=== PATIENT | male | born 1955 | race Caucasian/White ===

== ENCOUNTER 2016-07-20 06:38 | Inpatient (IN) | payer OTHER ==
[2016-07-07 09:06] VITALS: BMI 35.0
--- NOTE | 2016-07-07 09:55 | PAT Medication Instructions ---
Service Date Jul 07, 2016. Current Home Medication List Carvedilol (Coreg), 1 TAB PO BID Cholecalciferol (Vitamin D3), 1 TAB PO QAM Digoxin (Digoxin), 0.125 MG PO NOON Fluticasone Furoate-Vilanterol (Breo Ellipta), 1 DOSE INH QAM Furosemide (Lasix), 20 MG PO PRN Glyburide (Micronase), 2.5 MG PO QAM Ibuprofen (Advil), 400 MG PO BID PRN for RN Losartan Potassium (Cozaar), 25 MG PO QAM Metformin Hcl (Glucophage), 850 MG PO BID Multivitamin (Multivitamin), 0.5 TAB PO BID Rivaroxaban (Xarelto), 20 MG PO QPM Medication Instructions For Your Scheduled Surgery - Check with surgeon/heel seat trimmer for instructions (if okay with heel seat trimmer, needs to be off Xarelto for 72 hours prior to surgery for spinal block placement ) Rivaroxaban (Xarelto), 20 MG PO QPM - Check with surgeon for instructions: Ibuprofen (Advil), 400 MG PO BID PRN for RN - Continue as usual: Digoxin (Digoxin), 0.125 MG PO NOON - Hold the following medications 48 hours prior to surgery: Metformin Hcl (Glucophage), 850 MG PO BID - Hold the following medications the morning of surgery: Multivitamin (Multivitamin), 0.5 TAB PO BID Losartan Potassium (Cozaar), 25 MG PO QAM Glyburide (Micronase), 2.5 MG PO QAM Furosemide (Lasix), 20 MG PO PRN Cholecalciferol (Vitamin D3), 1 TAB PO QAM - Take the following medications the morning of surgery with a sip of water: Fluticasone Furoate-Vilanterol (Breo Ellipta), 1 DOSE INH QAM Carvedilol (Coreg), 1 TAB PO BID - Take the following medications as scheduled the night before surgery: Furosemide (Lasix), 20 MG PO PRN Carvedilol (Coreg), 1 TAB PO BID If you have any questions please call us at [phone] (Radha Marrufo PA-C) or [phone] or [phone]
[2016-07-07 10:33] LABS: BASO % 0.4 %; BASO ABS # 0.03 K/uL (0-0.2); COMPLETE YES; EOS % 2.2 %; IG% 0.5 %; LYMPH % 24.8 %; LYMPH ABS # 1.99 K/uL (1.2-3.4); MEAN CELL VOLUME 88.8 fL (80-100); MEAN CORPUSCULAR HEMOGLOBIN 30.4 pg (25-34); MEAN CORPUSCULAR HGB CONC 34.2 g/dl (32-36); MEAN PLATELET VOLUME 11.1 fL (7.4-10.4); MONO % 8.8 %; NEUT % 63.3 %; PLATELET COUNT 185 K/uL (130-400); RED BLOOD COUNT 5.07 M/uL (4.7-6.1); WHITE BLOOD COUNT 8.04 K/uL (4.8-10.8)
[2016-07-07 10:41] LABS: MANUAL MICROSCOPIC REQUIRED? NO; REVIEW REQ? NO; URINE APPEARANCE CLEAR (CLEAR); URINE BILIRUBIN NEG (NEG); URINE COLOR YELLOW; URINE NITRITE NEG (NEG); URINE PH 5.5 (4.5-7.5); URINE SPECIFIC GRAVITY 1.018 (1.000-1.030); UROBILINOGEN NEG (NEG)
[2016-07-07 10:42] LABS: INR 1.1 (0.9-1.1); PARTIAL THROMBOPLASTIN RATIO 1.1; PROTHROMBIN TIME (PATIENT) 11.9 SECONDS (9.0-12.0)
[2016-07-07 11:04] LABS: CREATININE 1.1 mg/dl (0.60-1.40)
[2016-07-07 11:12] LABS: ESTIMATED AVERAGE GLUCOSE 206 mg/dl; HA1C FLAG Normal (Normal)
--- NOTE | 2016-07-19 09:06 | HISTORY & PHYSICAL EXAMINATION ---
DATE OF ADMISSION: 07/20/2016 CHIEF COMPLAINT: Left knee pain. HISTORY OF PRESENT ILLNESS: The patient is a 60-year-old gentleman with known osteoarthritis about his left knee. He has had previous corticosteroid injection with short-term relief. He takes [id number] anti-inflammatory medications intermittently for pain as needed. He continues to have ongoing pain and disability with activities of daily living and now desires to proceed with left total knee arthroplasty. PAST MEDICAL HISTORY: Hypertension, type 2 diabetes, atrial fibrillation, hyperlipidemia, obesity. PAST SURGICAL HISTORY: Right knee arthroscopy. MEDICATIONS: Include glyburide 2.5 mg daily with breakfast, Breo Ellipta 100/25 mcg 1 inhalation once daily, Lasix 20 mg daily, ProAir 108 mcg 2 puffs q. 8 hours p.r.n. wheezing, Cozaar 25 mg daily, digoxin 125 mcg daily, Xarelto 20 mg daily, Coreg 3.125 mg twice daily, multivitamin daily, metformin hydrochloride 850 mg twice daily, vitamin D3 400 International Units daily. ALLERGIES: SESAME SEED AND OIL. SOCIAL HISTORY AND REVIEW OF SYSTEMS: Noncontributory. PHYSICAL EXAMINATION: GENERAL: Well-nourished, well-developed, obese male who appears stated age. HEENT: Normocephalic, atraumatic, extraocular movements intact, oropharynx pink and moist. NECK: Supple without adenopathy. LUNGS: Clear to auscultation bilaterally. HEART: Regular rate and rhythm. ABDOMEN: Soft, nontender, nondistended, obese. EXTREMITIES: The upper extremities are within normal limits. The left knee has a slight varus alignment. He complains primarily of medial compartment pain. His range of motion is approximately -5 to 120 degrees. There is mild crepitus with range of motion. X-RAYS: X-rays were reviewed. He has a varus aligned knee. He has [id number] arthritis of the medial compartment with medial osteophyte formation. There is mild degenerative change about the patellofemoral joint. ASSESSMENT: Left knee degenerative joint disease. PLAN: Risks versus benefits were discussed, consent was obtained. The patient's primary care physician is Dr. Primo Almean. His cream cheese maker is Dr. Nito Ramirez. We will proceed with left total knee arthroplasty upon preop workup and medical clearance.
[2016-07-20] VITALS (8 sets, daily range): BP systolic 102–125; BP diastolic 67–81; PULSE 82–98; TEMP 36.5–37.4; O2SAT 94–97; Ht 185.4 cm; Wt 122.7 kg
[~2016-07-20] VITALS: Ht 185.4 cm; Wt 122.7 kg
[~2016-07-20 06:38] MED LIST: ACETAMINOPHEN 500 MG TAB PO SCH; BUPIVACAINE 0.25% 30 ML VIAL ONE; BUPIVACAINE 0.5 % 5 MG/1 ML PF 10ML VIAL ONE; CARV3.12 PO; CEFAZOLIN 3000 MG/65 ML D5W 65 ML IV SCH; CHOL20007 PO; CeleBREX 200 MG CAP PO SCH; DEXAMETHASONE 4 MG TAB PO SCH; FAMOTIDINE 20 MG TAB PO SCH; FLUT1INH INH; FURO-85 PO; GABAPENTIN 300 MG CAP PO SCH; GLYB5TAB8 PO; IBUP-1050 PO; LACTATED RINGER'S 1000ML 1,000 ML IV SCH; LACTATED RINGER'S 1000ML 500 ML IV ONE; LACTATED RINGER'S 1000ML IV SCH; LNX125 PO; LOSA1TAB PO; METF-383 PO; METOCLOPRAMIDE HCL 10 MG TAB PO SCH; MULT-506 PO; RIVA1TAB4 PO; ROPIVACAINE 5MG/ML 30 ML 150 MG, BUPIVACAINE/EPINEPHR 0.5% MPF 30 ML, KETOROLAC TROMETH... INFIL SCH
[2016-07-20] MEDS ORDERED: FENTANYL CITRATE INJ 50 MCG/1 ML 2 ML VIAL ONE (07:31)
[2016-07-20] MEDS ORDERED: MIDAZOLAM HCL 1 MG/ML 2ML VIAL ONE (07:31)
[2016-07-20] MEDS ORDERED: ATROPINE SULFATE 0.1 MG/ML 5ML SYR IV PRN (07:45)
[2016-07-20] MEDS ORDERED: FENTANYL CITRATE INJ 50 MCG/1 ML 2 ML VIAL IV PRN (07:45)
[2016-07-20] MEDS ORDERED: ONDANSETRON INJ 2 MG/ML 2 ML VIAL IV PRN ×2 (07:45→10:45)
[2016-07-20] MEDS ORDERED: EpHEDrine SULFATE INJ 50 MG/ML AMP IV PRN (07:45)
--- NOTE | 2016-07-20 08:12 | History & Physical Bridge Note ---
H&P Re-Evaluation Bridge Note: I have examined the patient, reviewed the History & Physical and in the interval since the performance of the History & Physical I have noted the following changes of clinical significance: No changes noted
[2016-07-20] MEDS ORDERED: BACITRACIN 50000 UNIT VIAL ONE (08:29)
[2016-07-20] MEDS ORDERED: ORTHO JOINT ANESTHETIC ONE (08:29)
[2016-07-20] MEDS ORDERED: POVIDONE-IODINE OP SOLN 30 ML BTL ONE (08:29)
[2016-07-20] MEDS: TRANEXAMIC ACID INJ 1,000 MG in SODIUM CHLORIDE 0.9% 100ML 100 ML IV SCH ×2 (08:49→12:32)
[2016-07-20] MEDS ORDERED: LIDOCAINE HCL 2% 2 ML VIAL (20MG/ML) ONE (09:24)
[2016-07-20] MEDS ORDERED: PROPOFOL IV EMULSION 10 MG/ML 20 ML VIAL IV ONE ×2 (09:24→09:47)
[2016-07-20] MEDS ORDERED: PHENYLEPHRINE 100MCG/ML 5ML SYR ONE (09:24)
[2016-07-20] MEDS ORDERED: TAMSULOSIN HCL 0.4 MG CAP PO PRN (10:45)
[2016-07-20] MEDS ORDERED: ZOLPIDEM TARTRATE 5 MG TAB PO PRN (10:45)
[2016-07-20] MEDS ORDERED: MAGNESIUM HYDROXIDE SUSP 30 ML UDC PO PRN (10:45)
[2016-07-20] MEDS ORDERED: METOCLOPRAMIDE HCL INJ 5 MG/ML 2 ML VIAL IV PRN (10:45)
[2016-07-20] MEDS ORDERED: ALUMINUM/MAGNESIUM/SIMETH (MAALOX MAX) 30 ML UDC PO PRN (10:45)
[2016-07-20] MEDS ORDERED: MoRPHine SULFATE 2 MG/ML CARP IV PRN (10:45)
--- NOTE | 2016-07-20 11:24 | DIAGNOSTIC IMAGING REPORT ---
LEFT KNEE 1 OR 2 VIEWS ROUTINE CLINICAL HISTORY: AP/LATERAL IN PACU LEFT KNEE knee replacement COMPARISON: None. DISCUSSION: Anatomic alignment status post total left knee replacement. Good contact between prosthetic and underlying bone. Surgical drains are in position expected soft tissue postoperative change IMPRESSION: Anatomic alignment status post total left knee replacement Electronically signed by: Nelson Herrera M.D. 07/20/2016 11:23 AM Dictated Date/Time: 07/20/2016 11:22 AM
--- NOTE | 2016-07-20 11:40 | Anesthesiology Progress Note ---
Anesthesia Post Op Note Date & Time Jul 20, 2016 at 11:39 Vital Signs Pain Intensity: 0 Vital Signs Past 12 Hours Date Time Temp Pulse Resp B/P Pulse Ox O2 Delivery O2 Flow Rate FiO2 07/20/16 11:35 91 16 106/71 94 Nasal Cannula 4 07/20/16 11:25 80 16 103/67 93 Nasal Cannula 4 07/20/16 11:15 80 16 106/67 99 Nasal Cannula 4 07/20/16 11:05 83 16 90/61 99 Mask 10 07/20/16 10:55 84 16 109/71 99 Mask 10 07/20/16 10:47 36.6 86 16 105/72 94 Mask 10 07/20/16 07:01 36.5 98 20 125/81 94 Room Air Notes Mental Status: alert / awake / arousable, participated in evaluation Pt Amnestic to Procedure: Yes Nausea / Vomiting: adequately controlled Pain: adequately controlled Airway Patency, RR, SpO2: stable & adequate BP & HR: stable & adequate Hydration State: stable & adequate Neuraxial Anesthesia: was administered, sensory block is resolving Anesthetic Complications: no major complications apparent Will ensure patient on continuous pulse oximetry on floor and before surgery he knew to use CPAP today (he brought it from home).
[2016-07-20] MEDS ORDERED: GLUCOSE 40% GEL 15 GM TUBE PO PRN (13:00)
[2016-07-20] MEDS ORDERED: GLUCOSE 10 TABS/TUBE PO PRN (13:00)
[2016-07-20] MEDS ORDERED: GLUCAGON FOR INJ 1 MG VIAL SQ PRN (13:00)
[2016-07-20] MEDS ORDERED: DEXTROSE 50% 50 ML SYR IV PRN (13:00)
[2016-07-20] MEDS: SODIUM CHLORIDE 0.9% 1000ML 1,000 ML IV SCH ×2 (13:32→22:22)
[2016-07-20] MEDS ORDERED: MoRPHine SULFATE 10 MG/ML CARP/VIAL IV PRN (13:45)
[2016-07-20] MEDS ORDERED: MoRPHine SULFATE 4 MG/ML 1 ML CARP\\VIAL IV PRN (13:45)
--- NOTE | 2016-07-20 13:49 | OPERATIVE REPORT ---
DATE OF OPERATION: 07/20/2016 PREOPERATIVE DIAGNOSIS: Osteoarthritis, left knee. POSTOPERATIVE DIAGNOSIS: Osteoarthritis, left knee. PROCEDURE: Left total knee arthroplasty. SURGEON: Dr. Rainey. SPRINKLER DRIVER: Arnaldo Andres PA-C ANESTHESIA: Spinal. COMPLICATIONS: None. CONDITION: Recovery room stable. OPERATION AND FINDINGS: Following induction of spinal anesthesia, the patient's left leg was prepped and draped in the usual sterile manner. Limb was exsanguinated with an Esmarch bandage and tourniquet was inflated to 350 mmHg. A longitudinal incision was made anteriorly. Subcutaneous tissue was sharply dissected. Electrocautery was used for hemostasis. Prepatellar bursa was incised and median parapatellar incision was performed. Patella was everted and the knee was flexed. Fat pad was removed to aid in visualization and the anterior and posterior cruciate ligaments were removed. The medial face of the tibia was cleared of soft tissue first with a Bovie and a Tuttle elevator. This tissue was retracted posteriorly using a blunt Hohmann. A Suarez retractor was used to expose the synovium above on the anterior aspect of the femur and this was removed down to bone. The PSI guide was placed on the distal femur and two pins were placed anteriorly and kept in position and two additional pins were placed distally and removed. The distal femoral cutting block was placed in position and the distal femoral cut was used in the +0 setting. Next, the cutting block was removed and the spinal block was placed in the distal end of the femur. Care was taken to ensure appropriate external rotation and feeler gauge was used to ensure no notching would occur. The femoral block was centered on the distal femur and in the medial and lateral direction and was fixed using two bone screws. The gold pins were then removed. The oscillating saw was used to create the bone cuts and the distal femoral cutting block was removed and the reciprocating saw was used to further trim the femoral cuts as well as a deep in the area for the trochlear groove. Next, posterior condyle remnants were removed. Following this, a meniscal clamp and knife were utilized to remove the anterior portion of both medial and lateral meniscus. The proximal tibia PSI guide was placed into position and the proximal tibial cutting guide was screwed into position. The extra medullary alignment guide was utilized to ensure appropriate alignment. The proximal tibia was cut and the proximal tibial cutting block was removed and this bone fragment was removed. The appropriate guide was used to perform the notch cut on the distal femur and a lamina sloop captain and a cochlear knife were utilized to finish both medial and lateral meniscectomies to remove any remnants of the posterior or anterior cruciate ligaments. Following this, the distal femoral component was impacted into position and blunt Ceci was used to sublux the tibia anteriorly. The proximal tibia was sized and a 5 tibial tray was chosen as the size to be used. This was put into position and appropriate external rotation and a double check with extramedullary alignment guide was performed. The canal for the tibial stem was prepared first with a 17 mm drill and then the punch and a mallet and the trial tibial poly was placed. A 5 was chosen the size to be used. It was brought to extension and the patella was prepared with the patellar reamer. A 36 component was chosen the size to be used. The trial component was placed and knee was taken through a full range of motion and there was found to be no lateral subluxation of the tibia. No lateral release was required. The trials were all removed. The final components were obtained and assembled. Cement was mixed. The knee was thoroughly irrigated and the ortho mix was injected about the knee joint. The final components were cemented into position. After thoroughly suctioning and drying the bone ends, all excess cement was removed. The knee was held in extension while the cement hardened. The wound was irrigated and closed over a Hemovac drain. #1 Vicryl was used to close the extensor mechanism. Subcutaneous tissues closed using 0 Dexon. Skin was closed with marcello. Sterile dressing of Adaptic, 4 x 4's, sterile Webril, and Patrick was applied. The patient tolerated the procedure well. Due to the complex nature of the procedure, the entire surgery was performed with the operational assistance of Arnaldo Andres PA-C. The technical support assistant, under direct supervision, was involved in the actual performance of all aspects of the surgical procedure including hemostasis, tissue retraction and incision, instrument management, patient positioning, and wound closure. I attest to the content of the Intraoperative Record and any orders documented therein. Any exceptions are noted below. WENCESLAO
[2016-07-20] MEDS: FERROUS GLUCONATE 324 MG TAB PO SCH ×2 (14:10→17:08)
[2016-07-20] MEDS: INSULIN ASPART 100 UNITS/ML 3 ML PEN SC SCH ×3 (14:12→21:36)
--- NOTE | 2016-07-20 14:43 | Medical Consult ---
Consultation Date of Consultation: Jul 20, 2016. Attending Physician: Caleb Rainey M.D. Reason for Consultation: Medical Consultation History of Present Illness Mr. York is a 60 y/o male with PMHx of Paroxysmal Atrial Fibrillation, T2DM, HTN, and HLD who is S/P L TKA. He is currently pain free as block still present but resolving. Neg flatus at this time. Reports that he takes oral anti- diabetic medications which his PCP just initiated Glyburide approx 3 weeks ago due to a high HbA1c. Last A1c is significant for 8.8. Besides his A Fib he denies further cardiovascular issues. Denies history of blood clots or bleeding disorders. Family Hx is significant for a mother with CAD with upcoming CABG. Family History Coronary Artery Disease MOTHER Social History Smoking Status: Never Smoker Smokeless Tobacco Use: No Alcohol Use: none Drug Use: none Marital Status: Housing Status: lives with family Allergies Coded Allergies: Sesame Seed (Verified Allergy, Severe, OIL AND SEEDS-ANAPHYLAXIS, 07/20/16) NO KNOWN DRUG ALLERGIES (Verified Allergy, Unknown, NONE, 07/20/16) Current Inpatient Medications Current Inpatient Medications Medications (Trade) Dose Ordered Sig/Wing Route Start Time Stop Time Status Last Admin Dose Admin Cefazolin Sodium (Ancef 3000 Mg/ 65 ml D5W) 65 ml @ 100 mls/hr PREOP IV 07/20/16 06:00 07/20/16 18:00 07/20/16 09:06 100 MLS/HR Acetaminophen (Tylenol Tab) 1,000 mg PREOP PO 07/20/16 06:00 07/20/16 18:00 07/20/16 07:30 1,000 MG Celecoxib (CeleBREX CAP) 200 mg PREOP PO 07/20/16 06:00 07/20/16 18:00 07/20/16 07:30 200 MG Dexamethasone (Decadron Tab) 8 mg PREOP PO 07/20/16 06:00 07/20/16 18:00 07/20/16 07:32 8 MG Famotidine (Pepcid Tab) 20 mg PREOP PO 07/20/16 06:00 07/20/16 18:00 07/20/16 07:30 20 MG Gabapentin (Neurontin Cap) 600 mg PREOP PO 07/20/16 06:00 07/20/16 18:00 07/20/16 07:31 600 MG Metoclopramide HCl 10 mg 10 mg PREOP PO 07/20/16 06:00 07/20/16 18:00 07/20/16 07:31 10 MG Tranexamic Acid 1000 mg/Sodium Chloride 110 ml @ 660 mls/hr TODAY@06,0630 IV 07/20/16 06:00 07/20/16 18:00 07/20/16 08:49 660 MLS/HR Sodium Chloride 1,000 ml @ 100 mls/hr Q10H IV 07/20/16 13:30 07/21/16 13:29 07/20/16 13:32 100 MLS/HR Cefazolin Sodium/ Dextrose (Ancef Iv/D5 50ml) 60 ml @ 100 mls/hr Q8H IV 07/20/16 17:00 07/21/16 01:35 Ketorolac Tromethamine (Toradol Inj) 30 mg Q6H IV. 07/20/16 16:00 07/21/16 15:59 Oxycodone HCl (Roxicodone Immediate Rel Tab) 1 TABLET FOR PAIN RATING... Q4H PRN PO 07/20/16 10:45 08/03/16 10:44 Oxycodone HCl (Oxycontin Tab) 10 mg Q12 PO 07/20/16 21:00 08/03/16 20:59 Morphine Sulfate (MoRPHine SULFATE INJ) 2 mg Q2HWA PRN IV 07/20/16 10:45 08/03/16 10:44 Acetaminophen (Tylenol Tab) 1,000 mg Q8 PO 07/21/16 15:00 08/20/16 14:59 Magnesium Hydroxide (Milk Of Magnesia Susp) 30 ml Q6H PRN PO 07/20/16 10:45 08/19/16 10:44 Docusate Sodium (coLACE CAP) 100 mg BID PO 07/20/16 21:00 08/19/16 20:59 Diphenhydramine HCl (Benadryl Cap) 25 mg Q8H PRN PO 07/20/16 10:45 08/19/16 10:44 Al Hydrox/Mg Hydrox/Simethicone (Maalox Max Susp) 15 ml Q4H PRN PO 07/20/16 10:45 08/19/16 10:44 Zolpidem Tartrate (Ambien Tab) 5 mg HSZ PRN PO 07/20/16 10:45 08/19/16 10:44 Multivitamins (Multivitamin Tab) 1 tab QAM PO 07/21/16 09:00 08/20/16 08:59 Ondansetron HCl (Zofran Inj) 4 mg Q6H PRN IV 07/20/16 10:45 08/19/16 10:44 Metoclopramide HCl (Reglan Inj) 10 mg Q6H PRN IV 07/20/16 10:45 08/19/16 10:44 Ferrous Gluconate (Ferrous Gluconate Tab) 324 mg TIDM PO 07/20/16 12:00 08/19/16 11:59 07/20/16 14:10 324 MG Pantoprazole Sodium (Protonix Tab) 40 mg QAM PO 07/21/16 09:00 08/20/16 08:59 Tamsulosin HCl 0.4 mg 0.4 mg QAM PRN PO 07/20/16 10:45 08/19/16 10:44 Dexamethasone Sodium Phosphate/ Syringe (Decadron Inj/ Syringe) 2.5 ml @ 1 mls/min TODAY@0730 IV 07/21/16 07:30 07/21/16 07:33 Carvedilol (Coreg Tab) 3.125 mg BID PO 07/20/16 21:00 08/19/16 20:59 Digoxin (Lanoxin Tab) 0.125 mg DAILY@1600 PO 07/20/16 16:00 08/19/16 15:59 Miscellaneous Information (Order Awaiting Action) 1 ea QS N/A 07/20/16 16:00 08/19/16 15:59 Glyburide (MICRONase TAB) 2.5 mg QAM PO 07/21/16 09:00 08/20/16 08:59 Losartan Potassium (coZAAR TAB) 25 mg QAM PO 07/21/16 09:00 08/20/16 08:59 Rivaroxaban (Xarelto Tab) 20 mg QAM PO 07/21/16 09:00 08/20/16 08:59 Cholecalciferol (Vitamin D Tab) 2,000 inter.unit QAM PO 07/21/16 09:00 08/20/16 08:59 Miscellaneous Information (Order Awaiting Action) 1 ea QS N/A 07/20/16 16:00 08/19/16 15:59 Insulin Aspart (novoLOG ASPART) SLIDING SCALE If C... ACHS SC 07/20/16 17:15 08/19/16 17:14 07/20/16 14:12 2 UNITS Glucose (Glucose 40% Gel) 15-30 GRAMS 15 GRAMS... UD PRN PO 07/20/16 13:00 08/19/16 12:59 Glucose (Glucose Chew Tab) 4-8 Tablets 4 Tabl... UD PRN PO 07/20/16 13:00 08/19/16 12:59 Dextrose (Dextrose 50% 50ML Syringe) 25-50ML OF 50% DW IV FOR... UD PRN IV 07/20/16 13:00 08/19/16 12:59 Glucagon (Glucagon Inj) 1 mg UD PRN SQ 07/20/16 13:00 08/19/16 12:59 Morphine Sulfate (MoRPHine SULFATE INJ) 4 mg Q2H PRN IV 07/20/16 13:45 08/03/16 13:44 Morphine Sulfate (MoRPHine SULFATE INJ) 6 mg Q2H PRN IV 07/20/16 13:45 08/03/16 13:44 Review of Systems Constitutional: No chills, No fever Eyes: No worsening of vision ENT: No nasal symptoms, No sore throat, No trouble swallowing Respiratory: No cough, No shortness of breath Cardiovascular: No chest pain Abdomen: No nausea, No pain, No vomiting Musculoskeletal: No calf pain, No joint pain, No muscle pain, No swelling Genitourinary - Male: No dysuria Neurologic: + problem reported (numbness and limited movement 2/2 nerve block) Hematologic / Lymphatic: No abnormal bleeding/bruising, No clotting problems Integumentary: No rash Physical Exam Date Time Temp Pulse Resp B/P Pulse Ox O2 Delivery O2 Flow Rate FiO2 07/20/16 13:00 37.4 94 18 111/75 96 Nasal Cannula 4.0 07/20/16 12:30 36.8 92 16 106/71 94 Nasal Cannula 4.0 07/20/16 12:00 37.0 83 16 108/75 95 Nasal Cannula 4.0 07/20/16 12:00 Nasal Cannula 4.0 07/20/16 12:00 Nasal Cannula 4.0 07/20/16 11:35 91 16 106/71 94 Nasal Cannula 4 07/20/16 11:25 80 16 103/67 93 Nasal Cannula 4 07/20/16 11:15 80 16 106/67 99 Nasal Cannula 4 07/20/16 11:05 83 16 90/61 99 Mask 10 07/20/16 10:55 84 16 109/71 99 Mask 10 07/20/16 10:47 36.6 86 16 105/72 94 Mask 10 07/20/16 07:01 36.5 98 20 125/81 94 Room Air General Appearance: WD/WN, no apparent distress Head: normocephalic, atraumatic Eyes: sclerae normal ENT: hearing grossly normal Neck: supple, no adenopathy, no JVD, trachea midline Respiratory/Chest: lungs clear, normal breath sounds, no respiratory distress, no accessory muscle use Cardiovascular: regular rate, rhythm, no gallop, no murmur Abdomen/GI: normal bowel sounds, non tender, soft Extremities/Musculoskelatal: no calf tenderness, no pedal edema, + pertinent finding (LLE with LATOSHA bandage that is clean/dry/intact; drain present; immediate cap refill; extremity warm; limited movement 2/2 nerve block) Neurologic/Psych: alert, oriented x 3 Skin: normal color, warm/dry Laboratory Results Last 24 Hours Test 07/20/16 07:08 07/20/16 10:50 07/20/16 13:07 Bedside Glucose 164 mg/dl 173 mg/dl 211 mg/dl Assessment & Plan Mr. York is a 60 y/o male with PMHx of Paroxysmal Atrial Fibrillation, T2DM, HTN, and HLD who is S/P L TKA. S/P L TKA: - Pain management, IVF, PT/OT, DVT Prophylaxis per primary Paroxysmal Atrial Fibrillation: NSR Currently - Coreg 3.125 mg BID - Digoxin 0.125 mg daily - Xarelto 20 mg daily T2DM: A1c 8.8 - Recent addition of Glyburide approx 3 weeks ago - Hold Metformin - Continue Glyburide 2.5 mg daily - SSI - goal 100-150; correction factor 35 HTN: - Cozaar 25 mg daily - Lasix 20 mg PRN Disposition: - Recent addition of anti-diabetic medications - recommend repeat A1c in approx 3 months to monitor long-term effectiveness
[2016-07-20] MEDS: KETOROLAC TROMETHAMINE 30 MG/ML VIAL IV. SCH ×2 (15:36→21:38)
[2016-07-20] MEDS: DIGOXIN 0.125 MG TAB PO SCH (15:38)
[2016-07-20] MEDS: CEFAZOLIN IV 2,000 MG in DEXTROSE 5% 50ML 50 ML IV SCH (17:04)
[2016-07-20] MEDS: OXYCODONE HCL 10 MG TABCR (OXYCONTIN) PO SCH (21:37)
[2016-07-20] MEDS: DOCUSATE SODIUM 100 MG CAP PO SCH (21:37)
[2016-07-20] MEDS: CARVEDILOL 3.125 MG TAB PO SCH (21:41)
[2016-07-21] VITALS (8 sets, daily range): BP systolic 92–120; BP diastolic 59–75; PULSE 76–87; TEMP 36.3–37.2; O2SAT 91–96
[2016-07-21] MEDS: CEFAZOLIN IV 2,000 MG in DEXTROSE 5% 50ML 50 ML IV SCH (00:27)
[2016-07-21] MEDS: KETOROLAC TROMETHAMINE 30 MG/ML VIAL IV. SCH ×2 (03:37→10:12)
[2016-07-21 05:42] LABS: HEMATOCRIT 39.6 % (42-52); MEAN CELL VOLUME 88.6 fL (80-100); MEAN CORPUSCULAR HGB CONC 33.8 g/dl (32-36); MEAN PLATELET VOLUME 11.2 fL (7.4-10.4); PLATELET COUNT 155 K/uL (130-400); RED BLOOD COUNT 4.47 M/uL (4.7-6.1); WHITE BLOOD COUNT 14.24 K/uL (4.8-10.8)
[2016-07-21 06:16] LABS: BUN/CREATININE RATIO 22.9 (10-20); CALCIUM 7.9 mg/dl (8.5-10.1); CREATININE 1.1 mg/dl (0.60-1.40); POTASSIUM 4.1 mmol/L (3.5-5.1)
[2016-07-21] MEDS ORDERED: DEXAMETHASONE INJ 10 MG in SYRINGE 0 ML IV SCH (07:30)
--- NOTE | 2016-07-21 07:56 | Orthopedic Progress Note ---
Orthopedic Progress Note Date of Service Jul 21, 2016. Subjective Post OP Day: 1 Reports: feeling well Objective N/V intact, dressing C/D/I (Hemovac in place), toes mobile Date Time Temp Pulse Resp B/P Pulse Ox O2 Delivery O2 Flow Rate FiO2 07/21/16 07:35 Room Air 07/21/16 03:43 36.4 77 18 98/59 95 Room Air 07/21/16 00:25 CPAP 07/20/16 23:43 36.6 82 20 109/69 96 CPAP 07/20/16 20:34 36.8 94 16 102/67 97 Room Air 07/20/16 15:38 84 07/20/16 15:01 36.5 86 16 113/77 96 Nasal Cannula 4.0 07/20/16 14:00 36.5 89 17 111/74 94 Nasal Cannula 4.0 07/20/16 13:00 37.4 94 18 111/75 96 Nasal Cannula 4.0 07/20/16 12:30 36.8 92 16 106/71 94 Nasal Cannula 4.0 07/20/16 12:00 37.0 83 16 108/75 95 Nasal Cannula 4.0 07/20/16 12:00 Nasal Cannula 4.0 07/20/16 12:00 Nasal Cannula 4.0 07/20/16 11:35 91 16 106/71 94 Nasal Cannula 4 07/20/16 11:25 80 16 103/67 93 Nasal Cannula 4 07/20/16 11:15 80 16 106/67 99 Nasal Cannula 4 07/20/16 11:05 83 16 90/61 99 Mask 10 07/20/16 10:55 84 16 109/71 99 Mask 10 07/20/16 10:47 36.6 86 16 105/72 94 Mask 10 Laboratory Results 24 Hours: Test 07/21/16 05:00 Hematocrit 39.6 % Hemoglobin 13.4 g/dL Assessment & Plan Assessment: 60 yo male stable POD #1 left TKA Plan: 1. Med management 2. DVT prophylaxis- Xarelto, TEDs, SCDs 3. PT/OT 4. D/C planning- home w/ OPPT
[2016-07-21] MEDS: INSULIN ASPART 100 UNITS/ML 3 ML PEN SC SCH ×4 (08:39→21:08)
[2016-07-21] MEDS: FERROUS GLUCONATE 324 MG TAB PO SCH ×3 (08:51→18:35)
[2016-07-21] MEDS: FLUTICASONE FUROATE-VILANTEROL 30 PUFFS/INHALER INH INH SCH (08:52)
[2016-07-21] MEDS: DOCUSATE SODIUM 100 MG CAP PO SCH ×2 (08:54→21:04)
[2016-07-21] MEDS: CARVEDILOL 3.125 MG TAB PO SCH ×2 (08:55→21:04)
[2016-07-21] MEDS: LOSARTAN POTASSIUM 25 MG TAB PO SCH (08:56)
[2016-07-21] MEDS: MULTIVITAMIN TAB PO SCH (08:57)
[2016-07-21] MEDS: OXYCODONE HCL 10 MG TABCR (OXYCONTIN) PO SCH ×2 (08:57→21:04)
[2016-07-21] MEDS: PANTOprazole SOD 40 MG TAB PO SCH (08:58)
[2016-07-21] MEDS: CHOLECALCIFEROL 1000 INTER.UNIT TAB PO SCH (08:59)
[2016-07-21] MEDS ORDERED: RIVAROXABAN 20 MG TAB PO SCH ×2 (09:00→21:00)
[2016-07-21] MEDS ORDERED: NURSING VERBAL MED ORDER ONE (10:00)
[2016-07-21] MEDS: OXYCODONE HCL IR 5 MG TAB (IMMEDIATE RELEASE) PO PRN (10:11)
--- NOTE | 2016-07-21 11:03 | Progress Note ---
Subjective Date of Service: Jul 21, 2016. Subjective Pt evaluation today including: conversation w/ patient, conversation w/ family , physical exam, lab review, conversation w/ netsuite consultant, review of inpatient medication list Pain: left knee pain, controlled PO Intake: adequate Voiding: no voiding problems feeling well, pain controlled breathing well, no chest pain, no nausea no BM yet but + flatus planning on going home tomorrow with PT Review of Systems Musculoskeletal: + joint pain (left knee) All Other Systems: Reviewed and Negative Medications Current Inpatient Medications Medications (Trade) Dose Ordered Sig/Wing Route Start Time Stop Time Status Last Admin Dose Admin Ketorolac Tromethamine (Toradol Inj) 30 mg Q6H IV. 07/20/16 16:00 07/21/16 15:59 07/21/16 10:12 30 MG Oxycodone HCl (Roxicodone Immediate Rel Tab) 1 TABLET FOR PAIN RATING... Q4H PRN PO 07/20/16 10:45 08/03/16 10:44 07/21/16 10:11 5 MG Oxycodone HCl (Oxycontin Tab) 10 mg Q12 PO 07/20/16 21:00 08/03/16 20:59 07/21/16 08:57 10 MG Morphine Sulfate (MoRPHine SULFATE INJ) 2 mg Q2HWA PRN IV 07/20/16 10:45 08/03/16 10:44 Acetaminophen (Tylenol Tab) 1,000 mg Q8 PO 07/21/16 15:00 08/20/16 14:59 Magnesium Hydroxide (Milk Of Magnesia Susp) 30 ml Q6H PRN PO 07/20/16 10:45 08/19/16 10:44 Docusate Sodium (coLACE CAP) 100 mg BID PO 07/20/16 21:00 08/19/16 20:59 07/21/16 08:54 100 MG Diphenhydramine HCl (Benadryl Cap) 25 mg Q8H PRN PO 07/20/16 10:45 08/19/16 10:44 Al Hydrox/Mg Hydrox/Simethicone (Maalox Max Susp) 15 ml Q4H PRN PO 07/20/16 10:45 08/19/16 10:44 Zolpidem Tartrate (Ambien Tab) 5 mg HSZ PRN PO 07/20/16 10:45 08/19/16 10:44 Multivitamins (Multivitamin Tab) 1 tab QAM PO 07/21/16 09:00 08/20/16 08:59 07/21/16 08:57 1 TAB Ondansetron HCl (Zofran Inj) 4 mg Q6H PRN IV 07/20/16 10:45 08/19/16 10:44 Metoclopramide HCl (Reglan Inj) 10 mg Q6H PRN IV 07/20/16 10:45 08/19/16 10:44 Ferrous Gluconate (Ferrous Gluconate Tab) 324 mg TIDM PO 07/20/16 12:00 08/19/16 11:59 07/21/16 08:51 324 MG Pantoprazole Sodium (Protonix Tab) 40 mg QAM PO 07/21/16 09:00 08/20/16 08:59 07/21/16 08:58 40 MG Tamsulosin HCl (Flomax Cap) 0.4 mg QAM PRN PO 07/20/16 10:45 08/19/16 10:44 Carvedilol (Coreg Tab) 3.125 mg BID PO 07/20/16 21:00 08/19/16 20:59 07/21/16 08:55 3.125 MG Digoxin (Lanoxin Tab) 0.125 mg DAILY@1600 PO 07/20/16 16:00 08/19/16 15:59 07/20/16 15:38 0.125 MG Glyburide (MICRONase TAB) 2.5 mg QAM PO 07/21/16 09:00 08/20/16 08:59 07/21/16 08:56 2.5 MG Losartan Potassium (coZAAR TAB) 25 mg QAM PO 07/21/16 09:00 08/20/16 08:59 07/21/16 08:56 25 MG Cholecalciferol (Vitamin D Tab) 2,000 inter.unit QAM PO 07/21/16 09:00 08/20/16 08:59 07/21/16 08:59 2,000 INTER.UNIT Insulin Aspart (novoLOG ASPART) SLIDING SCALE If C... ACHS SC 07/20/16 17:15 08/19/16 17:14 07/21/16 08:39 1 UNITS Glucose (Glucose 40% Gel) 15-30 GRAMS 15 GRAMS... UD PRN PO 07/20/16 13:00 08/19/16 12:59 Glucose (Glucose Chew Tab) 4-8 Tablets 4 Tabl... UD PRN PO 07/20/16 13:00 08/19/16 12:59 Dextrose (Dextrose 50% 50ML Syringe) 25-50ML OF 50% DW IV FOR... UD PRN IV 07/20/16 13:00 08/19/16 12:59 Glucagon (Glucagon Inj) 1 mg UD PRN SQ 07/20/16 13:00 08/19/16 12:59 Morphine Sulfate (MoRPHine SULFATE INJ) 4 mg Q2H PRN IV 07/20/16 13:45 08/03/16 13:44 Morphine Sulfate (MoRPHine SULFATE INJ) 6 mg Q2H PRN IV 07/20/16 13:45 08/03/16 13:44 Fluticasone/ Vilanterol (Breo Ellipta 100-25 Mcg/Inh) 1 puffs DAILY INH 07/21/16 09:00 08/20/16 08:59 07/21/16 08:52 1 PUFFS Rivaroxaban (Xarelto Tab) 20 mg HS PO 07/21/16 21:00 08/20/16 20:59 Metformin HCl (Glucophage Tab) 850 mg BIDM PO 07/22/16 08:30 08/21/16 08:29 Objective Vital Signs Date Time Temp Pulse Resp B/P Pulse Ox O2 Delivery O2 Flow Rate FiO2 07/21/16 09:16 96 Room Air 07/21/16 08:20 80 120/74 76 118/75 07/21/16 08:00 36.8 82 19 92/62 96 Room Air 07/21/16 07:35 Room Air 07/21/16 03:43 36.4 77 18 98/59 95 Room Air 07/21/16 00:25 CPAP 07/20/16 23:43 36.6 82 20 109/69 96 CPAP 07/20/16 20:34 36.8 94 16 102/67 97 Room Air 07/20/16 15:38 84 07/20/16 15:01 36.5 86 16 113/77 96 Nasal Cannula 4.0 07/20/16 14:00 36.5 89 17 111/74 94 Nasal Cannula 4.0 07/20/16 13:00 37.4 94 18 111/75 96 Nasal Cannula 4.0 07/20/16 12:30 36.8 92 16 106/71 94 Nasal Cannula 4.0 07/20/16 12:00 37.0 83 16 108/75 95 Nasal Cannula 4.0 07/20/16 12:00 Nasal Cannula 4.0 07/20/16 12:00 Nasal Cannula 4.0 07/20/16 11:35 91 16 106/71 94 Nasal Cannula 4 07/20/16 11:25 80 16 103/67 93 Nasal Cannula 4 07/20/16 11:15 80 16 106/67 99 Nasal Cannula 4 07/20/16 11:05 83 16 90/61 99 Mask 10 Physical Exam General Appearance: WD/WN, no apparent distress ENT: normal ENT inspection, hearing grossly normal, pharynx normal Neck: supple, no adenopathy, no JVD, trachea midline Respiratory/Chest: chest non-tender, lungs clear, normal breath sounds, no respiratory distress, no accessory muscle use Cardiovascular: regular rate, rhythm, no edema, no gallop, no JVD, no murmur Abdomen: normal bowel sounds, non tender, soft, no organomegaly Extremities: no pedal edema, no calf tenderness, pelvis stable, + pertinent finding (left knee wrapped, tender, decreased ROM) Neurologic/Psychiatric: basting cleaner II-XII nml as tested, no motor/sensory deficits, alert, normal mood/affect, oriented x 3 Skin: normal color, warm/dry, no rash Laboratory Results Last 24 Hours Test 07/20/16 13:07 07/20/16 16:31 07/20/16 20:46 07/21/16 05:00 Bedside Glucose 211 mg/dl 238 mg/dl 232 mg/dl White Blood Count 14.24 K/uL Red Blood Count 4.47 M/uL Hemoglobin 13.4 g/dL Hematocrit 39.6 % Mean Corpuscular Volume 88.6 fL Mean Corpuscular Hemoglobin 30.0 pg Mean Corpuscular Hemoglobin Concent 33.8 g/dl RDW Standard Deviation 41.0 fL RDW Coefficient of Variation 12.8 % Platelet Count 155 K/uL Mean Platelet Volume 11.2 fL Sodium Level 138 mmol/L Potassium Level 4.1 mmol/L Chloride Level 104 mmol/L Carbon Dioxide Level 23 mmol/L Anion Gap 11.0 mmol/L Blood Urea Nitrogen 25 mg/dl Creatinine 1.10 mg/dl Est Creatinine Clear Calc Drug Dose 95.5 ml/min Estimated GFR () 82.9 Estimated GFR (Non- 71.6 BUN/Creatinine Ratio 22.9 Random Glucose 165 mg/dl Calcium Level 7.9 mg/dl Test 07/21/16 07:56 Bedside Glucose 163 mg/dl Assessment and Plan Mr. York is a 60 y/o male with PMHx of Paroxysmal Atrial Fibrillation, T2DM, HTN, and HLD who is S/P L TKA. S/P L TKA: POD #1 - Pain management, IVF, PT/OT, DVT Prophylaxis per primary - planning to go home tomorrow with therapy, cleared for discharge from medical perspective Paroxysmal Atrial Fibrillation: NSR Currently. HR stable - Coreg 3.125 mg BID - Digoxin 0.125 mg daily - Xarelto 20 mg daily T2DM: A1c 8.8 - Recent addition of Glyburide approx 3 weeks ago - resume Metformin now and continue on discharge - Continue Glyburide 2.5 mg daily - SSI - goal 100-150; correction factor 35 HTN: - Cozaar 25 mg daily - Lasix 20 mg PRN Disposition: - vitals stable, labs normal this AM except for leukocytosis which is reactive and due to steroids - stable medically, continue all prior medications on discharge - will sign off at this time, can go home tomorrow
[2016-07-21] MEDS: ACETAMINOPHEN 500 MG TAB PO SCH ×2 (14:00→19:11)
[2016-07-21] MEDS ORDERED: ACETAMINOPHEN 500 MG TAB PO SCH (15:00)
[2016-07-21] MEDS: DIGOXIN 0.125 MG TAB PO SCH (16:54)
[2016-07-22] MEDS: ACETAMINOPHEN 500 MG TAB PO SCH (04:16)
[2016-07-22 07:58] VITALS: BP 112/72; PULSE 82; TEMP 37; O2SAT 96
[2016-07-22] MEDS ORDERED: METFORMIN HCL 850 MG TAB PO SCH (08:30)
[2016-07-22] MEDS: OXYCODONE HCL 10 MG TABCR (OXYCONTIN) PO SCH (08:35)
[2016-07-22] MEDS: PANTOprazole SOD 40 MG TAB PO SCH (08:35)
[2016-07-22] MEDS: DOCUSATE SODIUM 100 MG CAP PO SCH (08:36)
[2016-07-22] MEDS: CARVEDILOL 3.125 MG TAB PO SCH (08:36)
[2016-07-22] MEDS: LOSARTAN POTASSIUM 25 MG TAB PO SCH (08:36)
[2016-07-22] MEDS: MULTIVITAMIN TAB PO SCH (08:36)
[2016-07-22] MEDS: FERROUS GLUCONATE 324 MG TAB PO SCH (08:37)
[2016-07-22] MEDS: CHOLECALCIFEROL 1000 INTER.UNIT TAB PO SCH (08:37)
[2016-07-22] MEDS: OXYCODONE HCL IR 5 MG TAB (IMMEDIATE RELEASE) PO PRN ×2 (08:38→13:22)
[2016-07-22] MEDS: INSULIN ASPART 100 UNITS/ML 3 ML PEN SC SCH ×2 (08:39→12:00)
[2016-07-22] MEDS: FLUTICASONE FUROATE-VILANTEROL 30 PUFFS/INHALER INH INH SCH (08:39)
--- NOTE | 2016-07-22 09:09 | Orthopedic Progress Note ---
Orthopedic Progress Note Date of Service Jul 22, 2016. Subjective Post OP Day: 2 Reports: feeling well, pain controlled w PO medications, Denies: SOB, calf pain , chest pain, complaints, light headedness, nausea / vomiting Objective calves soft nontender, N/V intact, capillary refill less than 2 sec., dressing C /D/I, A&O x3, toes mobile Silverlon in tact. Date Time Temp Pulse Resp B/P Pulse Ox O2 Delivery O2 Flow Rate FiO2 07/22/16 07:58 37.0 82 18 112/72 96 Room Air 07/21/16 23:41 36.5 78 16 102/59 92 Room Air 07/21/16 21:01 87 103/67 07/21/16 19:10 Room Air 07/21/16 16:54 73 07/21/16 14:59 36.3 79 16 99/66 91 Room Air 07/21/16 12:04 37.2 82 18 116/69 94 Room Air 07/21/16 09:16 96 Room Air Assessment & Plan Assessment: 60 yo male stable POD #2 left TKA Plan: 1. Med management 2. DVT prophylaxis- Xarelto, TEDs, SCDs 3. PT/OT 4. D/C planning- home w/ OPPT today Inhouse Planning Pain Management: Oxycontin, Morphine, PO Tylenol, Oxy IR DVT Prophylaxis: TEDs SCDs, Xarelto Discharge Planning Discharge Planning: home with oppt Pain Management: Oxycontin, PO Tylenol, Oxy IR DVT Prophylaxis: DILEEPsEmilyrelto Therapy: Physical Therapy, Occupational Therapy
[2016-07-22] MEDS ORDERED: OXYSR10 PO (09:12)
[2016-07-22] MEDS ORDERED: ONDA8TAB6 PO (09:12)
[2016-07-22] MEDS ORDERED: RXC5 PO (09:12)
[2016-07-22] MEDS ORDERED: ACET-1138 PO (09:12)
--- NOTE | 2016-07-22 09:13 | Discharge Instructions ---
Discharge Instructions Admission Reason for Admission: Left Knee Degenerative Joint Disease Discharge Discharge Diagnosis / Problem: Left TKA Discharge Goals Goal(s): Improve function Activity Recommendations Activity Limitations: as noted below . Instructions / Follow-Up Instructions / Follow-Up ACTIVITY RECOMMENDATIONS: SELF CARE INSTRUCTIONS AFTER TOTAL KNEE REPLACEMENT A. You may need to continue a physical therapy program after discharge from the hospital. There are several options available to you. Your doctor will assist you in selecting the best one for you. 1. An out-patient facility 2 to 3 times a week for therapy or home therapy. 2. Continue working on all exercises taught to you in the hospital. Your goals should be to increase bending of your knee to 90 degrees and beyond and to fully straighten your knee. B. You may progress at your own pace from walking with a walker or crutches to a cane; then to no assistive devices. C. Make walking a part of your daily routine. Be up as much as comfortable with rest periods throughout the day. Rest with leg elevation is very important. Use the ice wrap frequently for the first 3-4 weeks. D. There are no restrictions on activities. You may ride in a car, shop, participate in administrative project coordinator and all social activities. E. Wear the long elastic stockings (DILEEP hose) 20 hours a day for 2 weeks after surgery. They can be removed several times a day for laundering and for a bath. F. You may shower, no tub baths until cleared by your doctor. SPECIAL CARE INSTRUCTIONS: VERY IMPORTANT TO READ AND REVIEW A. There are a few signs you need to watch for after you are home. Call [facility] if you notice any of the followin. Increased severe knee pain. Some pain is expected especially when you exercise. 2. Increased swelling in your leg or knee; pain or swelling of the calf muscle in either lower leg. 3. Any fluid drainage from the incision. 4. Shortness of breath or chest pain. B. Please call [facility] at if you have any concerns or questions about your operation or recovery. The doctor or his nurse will return your call promptly. C. You must take antibiotics before dental work, bladder, bowel or other surgery. Your doctor will provide you with a permanent care to carry describing this precaution. IMPORTANT: * REMEMBER TO TAKE ASPIRIN, 81 MG, TWICE DAILY FOR 4 WEEKS UNLESS OTHERWISE DIRECTED. THIS IS YOUR BLOOD THINNER. * HIGH RISK PATIENTS MAY BE PRESCRIBED A STRONGER BLOOD THINNER. THIS WILL BE PROVIDED AT DISCHARGE. * CALL IF INCREASED PAIN, REDNESS, DRAINAGE OR FEVER GREATER THAT 101. * WEAR DILEEP HOSE 20 HOURS PER DAY FOR 2 WEEKS. * YOU MAY HAVE A LARGE BAND-AID LIKE DRESSING (SILVERON). THIS WILL REMAIN ON YOUR INCISION FOR 7 DAYS, THEN CAN BE REMOVED. IF INCISION IS LEAKING THROUGH DRESSING, CALL THE OFFICE . FOLLOW UP VISIT: If appointment is not already scheduled: Please call [facility] to make a follow-up appointment for 2 weeks after your surgery at . Current Hospital Diet Patient's current hospital diet: Diabetes Type 2 Diet Discharge Diet Recommended Diet: Diabetes Type 2 Diet Procedures Procedures Performed: Left Total Knee Arthroplasty Pending Studies Studies pending at discharge: no Laboratory Results Hemoglobin A1c Test 07/07/16 10:02 Range/Units Estimated Average Glucose 206 mg/dl Hemoglobin A1c 8.8 H 4.5-5.6 % Medical Emergencies . Who to Call and When: Medical Emergencies: If at any time you feel your situation is an emergency, please call 911 immediately. . Non-Emergent Contact Non-Emergency issues call your: Primary Care Provider . "Provider Documentation" section prepared by Nelson Simpson. VTE Core Measure Inpt VTE Proph given/why not?: Other Anticoagulation (xarelto), T.E.D. Stockings, SCD's
[2016-07-22 10:43] VITALS: O2SAT 96
[2016-07-22 12:26] VITALS: BP 112/70; PULSE 92; TEMP 36.9; O2SAT 95
[2016-07-22 12:50] VITALS: BP 112/70; PULSE 92; TEMP 36.9; O2SAT 95
--- NOTE | 2016-08-02 15:58 | DISCHARGE SUMMARY ---
CHIEF COMPLAINT: Left knee pain. Please see complete history and physical examination. HOSPITAL COURSE: The patient underwent left total knee arthroplasty without complication. He tolerated the procedure well and discharged to recovery room in stable condition. His postoperative course was relatively uneventful. His postoperative pain was reasonably well controlled with a combination of spinal anesthesia, intraoperative joint injection, IV, and oral pain medications. He was started back on his regular Xarelto postoperatively for DVT prophylaxis. He also utilized DILEEP stockings and SCDs for additional prophylaxis. His H\T\H was stable and did not require transfusion. Surgical drain was discontinued by postoperative day 2, surgical dressing will remain in place for approximately 7 days postoperative. He tolerated postoperative physical therapy reasonably well as he was ambulating and bending his knee appropriately. He was discharged home on postoperative day 2. He will continue his physical therapy as an outpatient. He will continue his regular Xarelto use for DVT prophylaxis and follow up in our office in approximately 10-14 days for his initial postop evaluation.
== END 2016-07-22 13:35 | disposition home or self-care (01) | DRG 470 ==
LOC: ENRESERVDT → ENRESERVTM → C.ACU 06:38 → C.3E 06:45
PROC: 0SRD0J9 Replacement of Left Knee Joint with Synthetic Substitute, Cemented, Open Approach (ICD-10-PCS; principal; 2016-07-20 08:45)
DX: M17.12 Unilateral primary osteoarthritis, left knee (principal); I48.0 Paroxysmal atrial fibrillation; E11.9 Type 2 diabetes mellitus without complications; E78.5 Hyperlipidemia, unspecified; I10 Essential (primary) hypertension; E66.9 Obesity, unspecified; G47.33 Obstructive sleep apnea (adult) (pediatric); E78.00 Pure hypercholesterolemia, unspecified; J44.9 Chronic obstructive pulmonary disease, unspecified; M25.561 Pain in right knee; Z79.51 Long term (current) use of inhaled steroids; Z79.1 Long term (current) use of non-steroidal anti-inflammatories (NSAID); Z68.35 Body mass index [BMI] 35.0-35.9, adult; Z99.89 Dependence on other enabling machines and devices; Z79.84 Long term (current) use of oral hypoglycemic drugs; Z79.01 Long term (current) use of anticoagulants; Z79.899 Other long term (current) drug therapy

== ENCOUNTER → 2017-04-19 | Outpatient (CLI) | payer OTHER ==
[~2017-04-19] MED LIST changes: +ACET-1138 PO; -ACETAMINOPHEN 500 MG TAB PO SCH; -BUPIVACAINE 0.25% 30 ML VIAL ONE; -BUPIVACAINE 0.5 % 5 MG/1 ML PF 10ML VIAL ONE; -CEFAZOLIN 3000 MG/65 ML D5W 65 ML IV SCH; -CeleBREX 200 MG CAP PO SCH; -DEXAMETHASONE 4 MG TAB PO SCH; -FAMOTIDINE 20 MG TAB PO SCH; -GABAPENTIN 300 MG CAP PO SCH; -IBUP-1050 PO; -LACTATED RINGER'S 1000ML 1,000 ML IV SCH; -LACTATED RINGER'S 1000ML 500 ML IV ONE; -LACTATED RINGER'S 1000ML IV SCH; -METOCLOPRAMIDE HCL 10 MG TAB PO SCH; +OXYSR10 PO; -ROPIVACAINE 5MG/ML 30 ML 150 MG, BUPIVACAINE/EPINEPHR 0.5% MPF 30 ML, KETOROLAC TROMETH... INFIL SCH; +RXC5 PO
[2017-04-19 17:22] LABS: BASO % 0.5 %; BASO ABS # 0.06 K/uL (0-0.2); COMPLETE YES; EOS % 1.3 %; IG% 0.2 %; LYMPH % 18.9 %; LYMPH ABS # 2.12 K/uL (1.2-3.4); MEAN CELL VOLUME 88.9 fL (80-100); MEAN CORPUSCULAR HEMOGLOBIN 31.4 pg (25-34); MEAN CORPUSCULAR HGB CONC 35.3 g/dl (32-36); MONO % 9.9 %; NEUT % 69.2 %; PLATELET COUNT 214 K/uL (130-400); RED BLOOD COUNT 5.06 M/uL (4.7-6.1); WHITE BLOOD COUNT 11.24 K/uL (4.8-10.8)
--- NOTE | 2017-04-19 17:31 | DIAGNOSTIC IMAGING REPORT ---
CHEST 2 VIEWS ROUTINE CLINICAL HISTORY: 61 years-old Male presenting with J40 [id number]. TECHNIQUE: PA and lateral views of the chest were obtained. COMPARISON: None. FINDINGS: Atherosclerosis of aortic arch. Cardiac silhouette normal in size. Lungs and pleural spaces clear. Exaggerated thoracic kyphosis with multilevel degenerative change. Upper abdomen normal. IMPRESSION: 1. No acute cardiopulmonary disease. Electronically signed by: Kamar Posey M.D. 04/19/2017 5:30 PM Dictated Date/Time: 04/19/2017 5:29 PM
--- NOTE | 2017-04-19 17:32 | DIAGNOSTIC IMAGING REPORT ---
SINUSES MIN 3 VIEWS ROUTINE CLINICAL HISTORY: 61 years-old Male presenting with J40 [id number]. TECHNIQUE: 4 views of the sinuses were obtained. COMPARISON: None. FINDINGS: Paranasal sinuses and mastoid air cells clear. Bony nasal septum midline. Bony orbits intact. Visualized portion of the calvarium normal. IMPRESSION: No radiographic evidence of opacification of the sinuses. Electronically signed by: Kamar Posey M.D. 04/19/2017 5:31 PM Dictated Date/Time: 04/19/2017 5:30 PM
[2017-04-19 18:02] LABS: ALT/SGPT 44 U/L (12-78); BLOOD UREA NITROGEN 16 mg/dl (7-18); BUN/CREATININE RATIO 16.2 (10-20); CARBON DIOXIDE 26 mmol/L (21-32); CHLORIDE 104 mmol/L (98-107); CREATININE 0.96 mg/dl (0.60-1.40); GLUCOSE 153 mg/dl (70-99); SODIUM 137 mmol/L (136-145)
[2017-04-19 18:04] LABS: ALKALINE PHOSPHATASE 60 U/L (45-117); AST/SGOT 20 U/L (15-37)
== END | disposition home or self-care (01) ==
LOC: C.RAD 16:38
PROVIDERS: ATTEND Physician Assistant
DX: J40 Bronchitis, not specified as acute or chronic (principal)

== ENCOUNTER 2017-07-12 06:31 | Inpatient (IN) | payer OTHER ==
[2017-06-20 11:51] VITALS: BMI 33.0
--- NOTE | 2017-06-20 12:31 | PAT Medication Instructions ---
Service Date Jun 20, 2017. Current Home Medication List Albuterol Hfa (Ventolin Hfa), Unknown Dose INH UD Carvedilol (Coreg), 1 TAB PO BID Cholecalciferol (Vitamin D3), 1 TAB PO QAM Digoxin (Digoxin), 1 DOSE PO NOON Epinephrine (Epipen), Unknown Dose IM UD Fluticasone Furoate-Vilanterol (Breo Ellipta), 1 DOSE INH QAM Furosemide (Lasix), 20 MG PO PRN Ipratropium-Albuterol (Duoneb), 1 TREATMENT INH UD PRN for prn Losartan Potassium (Cozaar), 25 MG PO QAM Metformin Hcl (Glucophage), 850 MG PO BID Multivitamin (Multivitamin), 0.5 TAB PO BID Rivaroxaban (Xarelto), 20 MG PO QPM Medication Instructions For Your Scheduled Surgery - Continue as directed: Epinephrine (Epipen), Unknown Dose IM UD - Hold the following medications 3 DAYS prior to surgery per Cardiology: Rivaroxaban (Xarelto), 20 MG PO QPM (last dose Sunday) - Hold the following medications 48 hours prior to surgery: Metformin Hcl (Glucophage), 850 MG PO BID (last dose Sunday) - Hold the following medications the morning of surgery: Multivitamin (Multivitamin), 0.5 TAB PO BID Furosemide (Lasix), 20 MG PO PRN Cholecalciferol (Vitamin D3), 1 TAB PO QAM Losartan Potassium (Cozaar), 25 MG PO QAM - Take the following medications the morning of surgery with a sip of water OTHERWISE NOTHING TO EAT OR DRINK AFTER MIDNIGHT: Albuterol Hfa (ProAir Hfa), Unknown Dose INH UD (use if needed; BRING TO HOSPITAL) Ipratropium-Albuterol (Duoneb), 1 TREATMENT INH UD PRN for prn Fluticasone Furoate-Vilanterol (Breo Ellipta), 1 DOSE INH QAM Digoxin (Digoxin), 1 DOSE PO NOON (time permitting) Carvedilol (Coreg), 1 TAB PO BID - Take the following medications as scheduled the night before surgery: Multivitamin (Multivitamin), 0.5 TAB PO BID Albuterol Hfa (Ventolin Hfa), Unknown Dose INH UD Ipratropium-Albuterol (Duoneb), 1 TREATMENT INH UD PRN for prn Carvedilol (Coreg), 1 TAB PO BID If you have any questions please call us at [phone] or [phone] or [phone]
--- NOTE | 2017-07-11 08:44 | HISTORY & PHYSICAL EXAMINATION ---
DATE OF ADMISSION: 07/12/2017 CHIEF COMPLAINT: Right knee pain. HISTORY OF PRESENT ILLNESS: The patient is a 61-year-old male with known osteoarthritis about his right knee. He has had previous corticosteroid injections with short term relief. He is on a blood thinner, so he is unable to take oral anti-inflammatory medications. He had a previous left total knee arthroplasty approximately 1 year ago, which has done well. Due to ongoing pain and disability, he now desires to proceed with right total knee arthroplasty. PAST MEDICAL HISTORY: Hypertension, atrial fibrillation, COPD, sleep apnea with CPAP use, type 2 diabetes, obesity, and history of melanoma. PAST SURGICAL HISTORY: Left knee replacement as above, previous left and right knee arthroscopies and melanoma, left flank. MEDICATIONS: Include Breo Ellipta 100/25 one puff daily, Coreg 3.125 mg twice daily with meals, Cozaar 25 mg daily, digoxin 12.5 mcg daily, metformin HCL 850 mg twice daily with meals, Xarelto 20 mg daily, vitamin D3 of 2000 units daily, and multivitamin daily. ALLERGIES: BEES, SESAME SEEDS, AND SESAME OIL. SOCIAL HISTORY AND REVIEW OF SYSTEMS: Noncontributory. PHYSICAL EXAMINATION: GENERAL: Well-nourished and well-developed, obese male, who appears his stated age. HEENT: Normocephalic and atraumatic. Extraocular movements intact. Oropharynx is pink and moist. NECK: Supple without adenopathy. LUNGS: Clear to auscultation bilaterally. HEART: Regular rate and rhythm. ABDOMEN: Soft, nontender, nondistended, and obese. EXTREMITIES: The upper extremities are within normal limits. The right knee has a slight varus alignment. His range of motion is from 0-120 degrees. There is mild crepitus with range of motion. X-RAYS: X-rays were reviewed. He has a varus aligned knee. He has [id number] arthritis of the medial compartment with complete loss of the joint space. There are osteophytes about the medial joint line as well as the patellofemoral joint. ASSESSMENT: Right knee degenerative joint disease. PLAN: Risks versus benefits were discussed. Consent was obtained. The patient's primary care physician is Dr. Primo Aleman from [facility]. His director of clinical education is Dr. Ramirez from [facility]. We will proceed with right total knee arthroplasty as indicated.
[2017-07-12] VITALS (7 sets, daily range): BP systolic 94–129; BP diastolic 61–87; PULSE 79–101; TEMP 36.3–36.8; O2SAT 94–100; Ht 185.4 cm; Wt 116.3 kg
[~2017-07-12] VITALS: Ht 185.4 cm; Wt 116.3 kg
[~2017-07-12 06:31] MED LIST changes: -ACET-1138 PO; +ACETAMINOPHEN 500 MG TAB PO SCH; +BUPIVACAINE 0.25% 30 ML VIAL ONE; +BUPIVACAINE 0.5 % 5 MG/1 ML PF 10ML VIAL ONE; +CEFAZOLIN 2000MG IV PUSH 10 ML IV SCH; +CeleBREX 200 MG CAP PO SCH; +DEXAMETHASONE 4 MG TAB PO SCH; +EPP3/2 IM; +FAMOTIDINE 20 MG TAB PO SCH; +GABAPENTIN 300 MG CAP PO SCH; -GLYB5TAB8 PO; +IPRASOL4 INH; +LACTATED RINGER'S 1000ML 1,000 ML IV SCH; +LACTATED RINGER'S 1000ML 500 ML IV SCH; +METOCLOPRAMIDE HCL 10 MG TAB PO SCH; -OXYSR10 PO; +ROPIVACAINE 5MG/ML 30 ML 150 MG, BUPIVACAINE 0.5% MPF INJ 30 ML, EpINEphrine HCL INJ 0.... INFIL SCH; -RXC5 PO; +TRANEXAMIC ACID INJ 1,000 MG in SYRINGE 0 ML IV SCH; +VNTHFA/IN INH
[2017-07-12] MEDS ORDERED: ORTHO JOINT ANESTHETIC ONE (07:39)
[2017-07-12] MEDS ORDERED: POVIDONE-IODINE OP SOLN 30 ML BTL ONE (07:39)
[2017-07-12] MEDS ORDERED: MIDAZOLAM HCL 1 MG/ML 2ML VIAL ONE ×4 (07:51→08:52)
[2017-07-12] MEDS ORDERED: FENTANYL CITRATE INJ 50 MCG/1 ML 2 ML VIAL ONE (07:51)
[2017-07-12] MEDS ORDERED: LIDOCAINE HCL 2% 2 ML VIAL (20MG/ML) ONE (08:10)
[2017-07-12] MEDS ORDERED: PROPOFOL IV EMULSION 10 MG/ML 20 ML VIAL IV ONE (08:10)
[2017-07-12] MEDS ORDERED: ONDANSETRON INJ 2 MG/ML 2 ML VIAL IV PRN ×2 (08:30→09:45)
[2017-07-12] MEDS ORDERED: FENTANYL CITRATE INJ 50 MCG/1 ML 2 ML VIAL IV PRN (08:30)
[2017-07-12] MEDS ORDERED: HYDROmorphone INJ 1 MG/ML SYR IV PRN (08:30)
[2017-07-12] MEDS ORDERED: EpHEDrine SULFATE INJ 50 MG/ML AMP IV PRN (08:30)
[2017-07-12] MEDS ORDERED: ATROPINE SULFATE 0.1 MG/ML 5ML SYR IV PRN (08:30)
--- NOTE | 2017-07-12 09:02 | [facility] Post Operative Brief Note ---
Immediate Operative Summary Operative Date Jul 12, 2017. Pre-Operative Diagnosis Right knee degenerative joint disease Post-Operative Diagnosis Same as preop Procedure(s) Performed Right total knee arthroplasty Surgeon Dr. Rainey Dam Operator Surgeon(s) Lalo Andres PA-C Estimated Blood Loss 10 cc Findings Consistent with Post-Op Diagnosis Specimens A: right knee bone and tissue Anesthesia Type MAC Spinal Regional Disposition Accompanied Pt To Recover: no Disposition:
[2017-07-12] MEDS: BACITRACIN 50000 UNIT VIAL ONE ×2 (09:15→09:20)
--- NOTE | 2017-07-12 09:23 | OPERATIVE REPORT ---
DATE OF OPERATION: 07/12/2017 PREOPERATIVE DIAGNOSIS: Osteoarthritis right knee. POSTOPERATIVE DIAGNOSIS: Osteoarthritis right knee. PROCEDURE: Right total knee arthroplasty. SURGEON: Caleb Rainey MD. COLLECTION ADVISOR: Arnaldo Andres PA-C. ANESTHESIA: Spinal. COMPLICATIONS: None. IMPLANTS USED: Femoral size 5, tibia size 5, tibial poly 13, patella size 39. DISPOSITION: Recovery room stable. OPERATION AND FINDINGS: Following induction of spinal anesthesia, the patient's right leg was prepped and draped in the usual sterile manner. Limb was exsanguinated with an Esmarch bandage and tourniquet was inflated to 350 mmHg. A longitudinal incision was made anteriorly. Subcutaneous tissue was sharply dissected. Electrocautery was used for hemostasis. Prepatellar bursa was incised and median parapatellar incision was performed. Patella was everted and the knee was flexed. Fat pad was removed to aid in visualization and the anterior and posterior cruciate ligaments were removed. The medial face of the tibia was cleared of soft tissue first with a Bovie and a Tuttle elevator. This tissue was retracted posteriorly using a blunt Hohmann. A Suarez retractor was used to expose the synovium above on the anterior aspect of the femur and this was removed down to bone. The PSI guide was placed on the distal femur and two pins were placed anteriorly and kept in position and two additional pins were placed distally and removed. The distal femoral cutting block was placed in position and the distal femoral cut was used in the +0 setting. Next, the cutting block was removed and the size 5 block was placed in the distal end of the femur. Care was taken to ensure appropriate external rotation and feeler gauge was used to ensure no notching would occur. The femoral block was centered on the distal femur and in the medial and lateral direction and was fixed using two bone screws. The gold pins were then removed. The oscillating saw was used to create the bone cuts and the distal femoral cutting block was removed and the reciprocating saw was used to further trim the femoral cuts as well as a deep in the area for the trochlear groove. Next, posterior condyle remnants were removed. Following this, a meniscal clamp and knife were utilized to remove the anterior portion of both medial and lateral meniscus. The proximal tibia PSI guide was placed into position and the proximal tibial cutting guide was screwed into position. The extra medullary alignment guide was utilized to ensure appropriate alignment. The proximal tibia was cut and the proximal tibial cutting block was removed and this bone fragment was removed. The appropriate guide was used to perform the notch cut on the distal femur and a lamina automatic spreader operator and a cochlear knife were utilized to finish both medial and lateral meniscectomies to remove any remnants of the posterior or anterior cruciate ligaments. Following this, the distal femoral component was impacted into position and blunt Ceci was used to sublux the tibia anteriorly. The proximal tibia was sized and a size 5 tibial tray was chosen as the size to be used. This was put into position and appropriate external rotation and a double check with extramedullary alignment guide was performed. The canal for the tibial stem was prepared first with a 17 mm drill and then the punch and a mallet and the trial tibial poly was placed. A size 13 was chosen the size to be used. It was brought to extension and the patella was prepared with the patellar reamer. A size 39 component was chosen the size to be used. The trial component was placed and knee was taken through a full range of motion and there was found to be no lateral subluxation of the tibia. No lateral release was required. The trials were all removed. The final components were obtained and assembled. Cement was mixed. The knee was thoroughly irrigated and the ortho mix was injected about the knee joint. The final components were cemented into position. After thoroughly suctioning and drying the bone ends, all excess cement was removed. The knee was held in extension while the cement hardened. The wound was irrigated and closed over a Hemovac drain. #1 Vicryl was used to close the extensor mechanism. Subcutaneous tissues closed using 0 Dexon. Skin was closed with marcello. Sterile dressing of Adaptic, 4 x 4's, sterile Webril, and Patrick was applied. The patient tolerated the procedure well. Due to the complex nature of the procedure, the entire surgery was performed with the operational assistance of Arnaldo Andres PA-C. The business support assistant, under direct supervision, was involved in the actual performance of all aspects of the surgical procedure including hemostasis, tissue retraction and incision, instrument management, patient positioning, and wound closure. I attest to the content of the Intraoperative Record and any orders documented therein. Any exception s are noted below.
[2017-07-12] MEDS ORDERED: MAGNESIUM HYDROXIDE SUSP 30 ML UDC PO PRN (09:45)
[2017-07-12] MEDS ORDERED: FUROSEMIDE 20 MG TAB PO PRN (09:45)
[2017-07-12] MEDS ORDERED: CEFAZOLIN IV 2,000 MG in DEXTROSE 5% 50ML 50 ML IV SCH (09:45)
[2017-07-12] MEDS ORDERED: MoRPHine SULFATE 2 MG/ML CARP IV PRN ×2 (09:45→11:30)
[2017-07-12] MEDS ORDERED: METOCLOPRAMIDE HCL INJ 5 MG/ML 2 ML VIAL IV PRN (09:45)
[2017-07-12] MEDS ORDERED: TAMSULOSIN HCL 0.4 MG CAP PO PRN (09:45)
[2017-07-12] MEDS ORDERED: ALUMINUM/MAGNESIUM/SIMETH (MAALOX MAX) 30 ML UDC PO PRN (09:45)
[2017-07-12] MEDS ORDERED: ZOLPIDEM TARTRATE 5 MG TAB PO PRN (09:45)
--- NOTE | 2017-07-12 10:09 | DIAGNOSTIC IMAGING REPORT ---
TWO VIEWS RIGHT KNEE CLINICAL HISTORY: Postoperative examination. FINDINGS: AP and crosstable lateral portable views of the right knee are obtained. A right knee arthroplasty is in near anatomic alignment. There has been undersurface remodeling of the patella. No acute fracture is seen. There are expected postoperative changes around the knee including a surgical drain, soft tissue edema, and subcutaneous gas. IMPRESSION: Expected postoperative changes status post right knee arthroplasty. No acute fracture is seen. Electronically signed by: Michael Roman M.D. 07/12/2017 10:08 AM Dictated Date/Time: 07/12/2017 10:07 AM
--- NOTE | 2017-07-12 10:38 | Anesthesiology Progress Note ---
Anesthesia Post Op Note Date & Time Jul 12, 2017 at 10:38 Vital Signs Pain Intensity: 0 Vital Signs Past 12 Hours Date Time Temp Pulse Resp B/P (MAP) Pulse Ox O2 Delivery O2 Flow Rate FiO2 07/12/17 10:25 36.8 84 15 104/65 97 Nasal Cannula 2 07/12/17 10:15 76 14 100/65 97 Nasal Cannula 2 07/12/17 10:05 78 12 110/66 97 Nasal Cannula 2 07/12/17 09:55 73 12 103/68 96 Nasal Cannula 2 07/12/17 09:45 77 13 105/64 96 Nasal Cannula 2 07/12/17 09:42 36.2 79 18 100/68 95 Nasal Cannula 2 07/12/17 06:55 36.4 99 18 129/87 95 Room Air Notes Mental Status: alert / awake / arousable, participated in evaluation Pt Amnestic to Procedure: Yes Nausea / Vomiting: adequately controlled Pain: adequately controlled Airway Patency, RR, SpO2: stable & adequate BP & HR: stable & adequate Hydration State: stable & adequate Anesthetic Complications: no major complications apparent
[2017-07-12] MEDS ORDERED: MoRPHine SULFATE 4 MG/ML 1 ML CARP\\VIAL IV PRN (11:30)
[2017-07-12] MEDS ORDERED: MoRPHine SULFATE 10 MG/ML CARP/VIAL IV PRN (11:30)
[2017-07-12] MEDS ORDERED: GLUCOSE 10 TABS/TUBE PO PRN (11:45)
[2017-07-12] MEDS ORDERED: GLUCOSE 40% GEL 15 GM TUBE PO PRN (11:45)
[2017-07-12] MEDS ORDERED: DEXTROSE 50% 50 ML SYR IV PRN (11:45)
[2017-07-12] MEDS ORDERED: GLUCAGON FOR INJ 1 MG VIAL SQ PRN (11:45)
--- NOTE | 2017-07-12 12:07 | Medical Consult ---
Consultation Date of Consultation: Jul 12, 2017. Attending Physician: Caleb Rainey M.D. Reason for Consultation: post-op medical management for a. fib, T2DM, etc History of Present Illness Pleasant 61yo male with h/o a. fib on chronic xarelto, HTN, MAGED, and T2DM who presented today for elective right TKR by Dr. Rainey. I saw him post-op on the orthopedic floor and he was resting comfortably. With the except of his right knee pain prior to the operation today he has been feeling well and enjoying his shelter. He reports regular follow-up with cardiology in [place] for his a. fib. Had a NORMAL heart catheterization about 3-4 years ago with clean coronaries to his recollection. Denies any post-op chest pain, dyspnea, or abd pain. Past Medical/Surgical History PMH: 1. a. fib 2. obesity 3. h/o melanoma 4. MAGED on CPAP 5. HTN 6. T2DM 7. COPD PSH: 1. inguinal hernia repair 2. left TKR 3. b/l knee arthroscopies 4. melanoma excision, left trunk Family History Coronary Artery Disease MOTHER Social History Smoking Status: Never Smoker Alcohol Use: occasionally Drug Use: none Marital Status: (lives in [place], [place]; has 2 sons) Housing Status: lives with family Occupation Status: retired (worked for [employer]) Allergies Coded Allergies: Sesame Seed (Verified Allergy, Severe, OIL AND SEEDS-ANAPHYLAXIS, 07/12/17) Pregabalin (Verified Allergy, Unknown, suicidal thoughts, 07/12/17) Home Medications Reported Home Medications Medications Dose Route/Sig Max Daily Dose Days Date Category Dose Instructions Ventolin Hfa (Albuterol) Unknown Strength Aers Unknown Dose INH UD 06/20/17 Reported pt med list reads : pro air inhalation Duoneb (Ipratropium-Albuterol) 3 Ml Nebu 1 Treatment INH UD PRN 06/20/17 Reported Epipen (Epinephrine) Unknown Strength Inj Unknown Dose IM UD 06/20/17 Reported Lasix (Furosemide) 20 Mg Tab 20 Mg PO PRN 07/07/16 Reported USUALLY 2-3 X A WEEK Breo Ellipta (Fluticasone Furoate-Vilanterol) 1 Inh Inh 1 Dose INH QAM 07/07/16 Reported Cozaar (Losartan Potassium) 25 Mg Tab 25 Mg PO QAM 07/07/16 Reported Xarelto (Rivaroxaban) 20 Mg Tab 20 Mg PO QPM 07/07/16 Reported Coreg (Carvedilol) 3.125 Mg Tab 1 Tab PO BID 90 07/07/16 Reported Digoxin 0.125 Mg Tab 1 Dose PO NOON 07/07/16 Reported pt med list reads 12.5mcg for dose Glucophage (Metformin Hcl) 850 Mg Tab 850 Mg PO BID 07/07/16 Reported Multivitamin (Multivitamins) Tab 0.5 Tab PO BID 07/07/16 Reported Vitamin D3 (Cholecalciferol) 2,000 Unit Tab 1 Tab PO QAM 90 07/07/16 Reported Current Inpatient Medications Current Inpatient Medications Medications (Trade) Dose Ordered Sig/Wing Route Start Time Stop Time Status Last Admin Dose Admin Lactated Ringer's 1,000 ml @ 15 mls/hr Q24H IV 07/12/17 06:00 07/13/17 05:59 Cefazolin Sodium 10 ml @ 2.5 mls/min PREOP IV 07/12/17 06:00 07/12/17 18:00 07/12/17 08:07 2.5 MLS/MIN Acetaminophen (Tylenol Tab) 1,000 mg PREOP PO 07/12/17 06:00 07/12/17 18:00 07/12/17 07:18 1,000 MG Celecoxib (CeleBREX CAP) 200 mg PREOP PO 07/12/17 06:00 07/12/17 18:00 07/12/17 07:17 200 MG Dexamethasone (Decadron Tab) 8 mg PREOP PO 07/12/17 06:00 07/12/17 18:00 07/12/17 07:17 8 MG Famotidine (Pepcid Tab) 20 mg PREOP PO 07/12/17 06:00 07/12/17 18:00 07/12/17 07:18 20 MG Gabapentin (Neurontin Cap) 600 mg PREOP PO 07/12/17 06:00 07/12/17 18:00 07/12/17 07:17 600 MG Metoclopramide HCl (Reglan Tab) 10 mg PREOP PO 07/12/17 06:00 07/12/17 18:00 07/12/17 07:18 10 MG Fentanyl Citrate (Fentanyl Inj) 25 mcg Q5M PRN IV 07/12/17 08:30 07/12/17 13:30 Hydromorphone HCl (Dilaudid Inj) 0.5 mg Q5M PRN IV 07/12/17 08:30 07/12/17 13:30 Ondansetron HCl (Zofran Inj) 4 mg ONE PRN IV 07/12/17 08:30 07/12/17 13:30 Ephedrine Sulfate (EpHEDrine SULFATE INJ) 5 mg Q5M PRN IV 07/12/17 08:30 07/12/17 13:30 Atropine Sulfate (Atropine Sulfate 0.1mg/ml Inj) 0.5 mg Q1M PRN IV 07/12/17 08:30 07/12/17 13:30 Sodium Chloride 1,000 ml @ 100 mls/hr Q10H IV 07/12/17 11:30 07/13/17 09:40 Ketorolac Tromethamine (Toradol Inj) 30 mg Q6H IV. 07/12/17 12:00 07/13/17 06:01 Celecoxib (CeleBREX CAP) 200 mg BID PO 07/13/17 21:00 08/12/17 20:59 Oxycodone HCl (Roxicodone Immediate Rel Tab) 1 TABLET FOR PAIN RATING... Q4H PRN PO 07/12/17 09:45 07/26/17 09:44 Acetaminophen (Tylenol Tab) 1,000 mg Q8H PO 07/12/17 14:00 08/11/17 13:59 Magnesium Hydroxide (Milk Of Magnesia Susp) 30 ml Q6H PRN PO 07/12/17 09:45 08/11/17 09:44 Docusate Sodium (coLACE CAP) 100 mg BID PO 07/12/17 21:00 08/11/17 20:59 Diphenhydramine HCl (Benadryl Cap) 25 mg Q8H PRN PO 07/12/17 09:45 08/11/17 09:44 Al Hydrox/Mg Hydrox/Simethicone (Maalox Max Susp) 15 ml Q4H PRN PO 07/12/17 09:45 08/11/17 09:44 Zolpidem Tartrate (Ambien Tab) 5 mg HSZ PRN PO 07/12/17 09:45 08/11/17 09:44 Multivitamins (Multivitamin Tab) 1 tab QAM PO 07/13/17 09:00 08/12/17 08:59 Ondansetron HCl (Zofran Inj) 4 mg Q6H PRN IV 07/12/17 09:45 08/11/17 09:44 Metoclopramide HCl (Reglan Inj) 10 mg Q6H PRN IV 07/12/17 09:45 08/11/17 09:44 Ferrous Gluconate (Ferrous Gluconate Tab) 324 mg TIDM PO 07/12/17 12:30 08/11/17 12:29 Pantoprazole Sodium (Protonix Tab) 40 mg QAM PO 07/13/17 09:00 07/16/17 23:59 Tamsulosin HCl (Flomax Cap) 0.4 mg QAM PRN PO 07/12/17 09:45 08/11/17 09:44 Dexamethasone Sodium Phosphate 10 mg/Syringe 2.5 ml @ 1 mls/min 0730 ONCE IV 07/13/17 07:30 07/13/17 07:32 Aspirin (Ecotrin Tab) 81 mg BID PO 07/12/17 21:00 08/11/17 20:59 Carvedilol (Coreg Tab) 3.125 mg BID PO 07/12/17 21:00 08/11/17 20:59 Furosemide (Lasix Tab) 20 mg UD PRN PO 07/12/17 09:45 08/11/17 09:44 Losartan Potassium (coZAAR TAB) 25 mg QAM PO 07/13/17 09:00 08/12/17 08:59 Future Hold Rivaroxaban (Xarelto Tab) 20 mg QPM PO 07/12/17 21:00 08/11/17 20:59 Miscellaneous Information (Order Awaiting Action) 1 ea QAM N/A 07/13/17 09:00 08/12/17 08:59 Digoxin (Lanoxin Tab) 0.125 mg DAILY@16 PO 07/12/17 16:00 08/11/17 15:59 Morphine Sulfate (MoRPHine SULFATE INJ) 2 mg Q2HWA PRN IV 07/12/17 11:30 07/26/17 11:29 Morphine Sulfate (MoRPHine SULFATE INJ) 4 mg Q2HWA PRN IV 07/12/17 11:30 07/26/17 11:29 Morphine Sulfate (MoRPHine SULFATE INJ) 6 mg Q2HWA PRN IV 07/12/17 11:30 07/26/17 11:29 Cefazolin Sodium 2000 mg/Syringe 15 ml @ 3.75 mls/ min Q8H IV 07/12/17 16:00 07/13/17 00:03 Insulin Aspart (novoLOG ASPART) SLIDING SCALE G... ACHS SC 07/12/17 12:00 08/11/17 11:59 UNV Review of Systems Constitutional: No fever, No chills, No weight loss, No fatigue Eyes: No worsening of vision ENT: No nasal symptoms, No sore throat, No trouble swallowing Respiratory: No cough, No sputum, No wheezing, No shortness of breath, No dyspnea on exertion, No dyspnea at rest Cardiovascular: No chest pain, No orthopnea, No PND, No edema Abdomen: No pain, No nausea, No vomiting, No diarrhea, No constipation Musculoskeletal: + joint pain (right knee - chronic) Genitourinary - Male: No dysuria Neurologic: + numbness/tingling (left leg - chronic, started after TKR), No memory loss Psychiatric: No depression symptoms Endocrine: No fatigue Hematologic / Lymphatic: No abnormal bleeding/bruising Integumentary: No rash Physical Exam Date Time Temp Pulse Resp B/P (MAP) Pulse Ox O2 Delivery O2 Flow Rate FiO2 07/12/17 10:56 36.8 86 16 94/63 (73) 98 Nasal Cannula 2.0 07/12/17 10:35 79 12 116/72 96 Nasal Cannula 2 07/12/17 10:25 36.8 84 15 104/65 97 Nasal Cannula 2 07/12/17 10:15 76 14 100/65 97 Nasal Cannula 2 07/12/17 10:05 78 12 110/66 97 Nasal Cannula 2 07/12/17 09:55 73 12 103/68 96 Nasal Cannula 2 07/12/17 09:45 77 13 105/64 96 Nasal Cannula 2 07/12/17 09:42 36.2 79 18 100/68 95 Nasal Cannula 2 07/12/17 06:55 36.4 99 18 129/87 95 Room Air General Appearance: WD/WN, no apparent distress Head: normocephalic, atraumatic Eyes: PERRL ENT: pharynx normal Neck: supple, no adenopathy, thyroid normal, no JVD, no carotid bruits Respiratory/Chest: lungs clear, no respiratory distress, no accessory muscle use, + decreased breath sounds (modest, right base) Cardiovascular: no gallop, no murmur, normal peripheral pulses, + irregularly irregular Abdomen/GI: normal bowel sounds, non tender, soft, no organomegaly Back: normal inspection Extremities/Musculoskelatal: no pedal edema, + pertinent finding (right knee in large LATOSHA wrap with drain in place) Neurologic/Psych: no motor/sensory deficits (strength 5/5 both upper extremities; due to block he has decreased strength/sensation in the legs at the time of my assessment), alert, oriented x 3 Skin: no rash Laboratory Results Last 24 Hours Test 07/12/17 06:53 07/12/17 09:48 Bedside Glucose 162 mg/dl 196 mg/dl Assessment & Plan 61yo male with h/o a. fib, HTN, MAGED on CPAP, T2DM, prior melanoma, COPD - s/p elective right TKR earlier this AM by Dr. Rainey. 1. T2DM - he is on monotherapy at home with metformin. Will hold this and resume at discharge. He received perioperative steroids and thus I anticipate his glucoses will be high for about 24-36 hours. Start novolog with correction factor of 30 and carb ratio of 1:10. Low threshold for starting lantus. 2. a. fib - rates are controlled at this time. Cont dig and coreg at home doses. Please resume xarelto at earliest time possible deemed safe by orthopedic team for stroke prevention. 3. HTN - BPs are low or low-normal post-op. Hold ARB. Cont coreg with appropriate hold parameters. Continue IVF. 4. MAGED - continue CPAP - if home unit not available will order hospital unit. 5. COPD - not in exacerbation at this time. Continue inhalers prn. 6. FEN - agree with current IVF. BMP in am. Diabetic diet. 7. DVT proph - xarelto. Thank you for this consult. Will follow with you. Carrillo Carreon MD
[2017-07-12] MEDS: KETOROLAC TROMETHAMINE 30 MG/ML VIAL IV. SCH ×3 (14:47→23:46)
[2017-07-12] MEDS: SODIUM CHLORIDE 0.9% 1000ML 1,000 ML IV SCH ×2 (14:47→23:46)
[2017-07-12] MEDS: ACETAMINOPHEN 500 MG TAB PO SCH ×2 (14:48→21:12)
[2017-07-12] MEDS: FERROUS GLUCONATE 324 MG TAB PO SCH ×2 (14:50→18:30)
[2017-07-12] MEDS: INSULIN ASPART 100 UNITS/ML 3 ML PEN SC SCH ×3 (14:55→21:11)
[2017-07-12] MEDS: CEFAZOLIN IV 2,000 MG in SYRINGE 5 ML IV SCH ×2 (15:56→23:46)
[2017-07-12] MEDS ORDERED: DIGOXIN 0.125 MG TAB PO SCH (16:00)
[2017-07-12] MEDS ORDERED: INSULIN GLARGINE SOLOSTAR 100 UNITS/ML 3 ML PEN SC SCH (21:00)
[2017-07-12] MEDS ORDERED: ASPIRIN 81 MG ECTAB PO SCH (21:00)
[2017-07-12] MEDS ORDERED: RIVAROXABAN 20 MG TAB PO SCH (21:00)
[2017-07-12] MEDS: DOCUSATE SODIUM 100 MG CAP PO SCH (21:01)
[2017-07-12] MEDS: CARVEDILOL 3.125 MG TAB PO SCH (21:08)
[2017-07-13 02:50] VITALS: BP 106/70; PULSE 88; TEMP 36.8; O2SAT 95
[2017-07-13] MEDS: ACETAMINOPHEN 500 MG TAB PO SCH ×2 (05:36→13:00)
[2017-07-13] MEDS: KETOROLAC TROMETHAMINE 30 MG/ML VIAL IV. SCH (05:37)
[2017-07-13 07:19] VITALS: BP 107/69; PULSE 89; TEMP 36.8; O2SAT 96
[2017-07-13] MEDS ORDERED: DEXAMETHASONE INJ 10 MG in SYRINGE 0 ML IV ONE (07:30)
--- NOTE | 2017-07-13 07:34 | Orthopedic Progress Note ---
Orthopedic Progress Note Date of Service Jul 13, 2017. Subjective Post OP Day: 1 Reports: feeling well Objective N/V intact, dressing C/D/I (Hemovac in place, output 300 ml overnight, would recommend maintaining drain at this time), toes mobile Date Time Temp Pulse Resp B/P (MAP) Pulse Ox O2 Delivery O2 Flow Rate FiO2 07/13/17 07:19 36.8 89 18 107/69 (82) 96 Room Air 07/13/17 02:50 36.8 88 18 106/70 (82) 95 Room Air 07/13/17 00:40 Room Air 07/12/17 23:05 36.7 101 18 94/61 (72) 94 Room Air 07/12/17 16:34 36.7 79 18 97/63 (74) 94 Nasal Cannula 2.0 07/12/17 15:57 72 07/12/17 15:30 Room Air 07/12/17 14:13 36.3 95 19 108/70 (83) 100 Nasal Cannula 2.0 07/12/17 13:00 36.7 82 19 102/67 (79) 96 Nasal Cannula 2.0 07/12/17 11:29 36.4 88 19 103/64 (77) 95 Nasal Cannula 2.0 07/12/17 10:56 36.8 86 16 94/63 (73) 98 Nasal Cannula 2.0 07/12/17 10:35 79 12 116/72 96 Nasal Cannula 2 07/12/17 10:25 36.8 84 15 104/65 97 Nasal Cannula 2 07/12/17 10:15 76 14 100/65 97 Nasal Cannula 2 07/12/17 10:05 78 12 110/66 97 Nasal Cannula 2 07/12/17 09:55 73 12 103/68 96 Nasal Cannula 2 07/12/17 09:45 77 13 105/64 96 Nasal Cannula 2 07/12/17 09:42 36.2 79 18 100/68 95 Nasal Cannula 2 Laboratory Results 24 Hours: Test 07/13/17 04:44 Additional Notes: Labs pending Assessment & Plan Assessment: 61 yo male stable POD #1 s/p right TKA Plan: 1. Med management 2. DVT prophylaxis- resume xarelto, SCDs 3. PT/OT 4. D/C planning- home w/ HH
[2017-07-13] MEDS ORDERED: ACET-24 PO (07:38)
[2017-07-13] MEDS ORDERED: CLB200 PO (07:38)
[2017-07-13] MEDS ORDERED: ONDA8TAB12 PO (07:38)
[2017-07-13] MEDS ORDERED: RXC5 PO (07:38)
--- NOTE | 2017-07-13 07:40 | Discharge Instructions ---
Discharge Instructions Date of Service Jul 13, 2017. Admission Reason for Admission: Right Knee Osteoarthritis Discharge Discharge Diagnosis / Problem: Right knee arthritis Discharge Goals Goal(s): Decrease discomfort, Improve function Activity Recommendations Activity Limitations: as noted below Weightbearing Status: Right weightbearing (as tolerated) . Instructions / Follow-Up Instructions / Follow-Up ACTIVITY RECOMMENDATIONS: SELF CARE INSTRUCTIONS AFTER TOTAL KNEE REPLACEMENT A. You may need to continue a physical therapy program after discharge from the hospital. There are several options available to you. Your doctor will assist you in selecting the best one for you. 1. An out-patient facility 2 to 3 times a week for therapy or home therapy. 2. Continue working on all exercises taught to you in the hospital. Your goals should be to increase bending of your knee to 90 degrees and beyond and to fully straighten your knee. B. You may progress at your own pace from walking with a walker or crutches to a cane; then to no assistive devices. C. Make walking a part of your daily routine. Be up as much as comfortable with rest periods throughout the day. Rest with leg elevation is very important. Use the ice wrap frequently for the first 3-4 weeks. D. There are no restrictions on activities. You may ride in a car, shop, participate in costing analyst and all social activities. E. Wear the long elastic stockings (DILEEP hose) 20 hours a day for 2 weeks after surgery. They can be removed several times a day for laundering and for a bath. F. You may shower, no tub baths until cleared by your doctor. SPECIAL CARE INSTRUCTIONS: VERY IMPORTANT TO READ AND REVIEW A. There are a few signs you need to watch for after you are home. Call [facility] if you notice any of the followin. Increased severe knee pain. Some pain is expected especially when you exercise. 2. Increased swelling in your leg or knee; pain or swelling of the calf muscle in either lower leg. 3. Any fluid drainage from the incision. 4. Shortness of breath or chest pain. B. Please call [facility] at if you have any concerns or questions about your operation or recovery. The doctor or his nurse will return your call promptly. C. You must take antibiotics before dental work, bladder, bowel or other surgery. Your doctor will provide you with a permanent care to carry describing this precaution. IMPORTANT: * REMEMBER TO TAKE ASPIRIN, 81 MG, TWICE DAILY FOR 4 WEEKS UNLESS OTHERWISE DIRECTED. THIS IS YOUR BLOOD THINNER. * HIGH RISK PATIENTS MAY BE PRESCRIBED A STRONGER BLOOD THINNER. THIS WILL BE PROVIDED AT DISCHARGE. * CALL IF INCREASED PAIN, REDNESS, DRAINAGE OR FEVER GREATER THAT 101. * WEAR DILEEP HOSE 20 HOURS PER DAY FOR 2 WEEKS. Silverlon- This is a large adhesive bandage that contains silver ions. This helps your incision heal by fighting off bacteria and protecting it from the outside environment. You are permitted to shower with this dressing. This will remain on your incision for 7 days and then should be removed. Some visible blood or drainage through the dressing window is normal. If there is significant drainage or leaking noted before the 7 days notify your doctor's office immediately. Once removed, keep incision clean and dry. If there is any drainage or redness noted, please call your surgeon. When removing Silverlon, maintain underlying Zipline closure until follow-up with MD. FOLLOW UP VISIT: If appointment is not already scheduled: Please call [facility] to make a follow-up appointment for 2 weeks after your surgery at . Current Hospital Diet Patient's current hospital diet: Diabetes Type 2 Diet Discharge Diet Recommended Diet: Diabetes Type 2 Diet Procedures Procedures Performed: Right total knee arthroplasty Pending Studies Studies pending at discharge: no Medical Emergencies . Who to Call and When: Medical Emergencies: If at any time you feel your situation is an emergency, please call 911 immediately. . Non-Emergent Contact Non-Emergency issues call your: Surgeon Call Non-Emergent contact if: temperature is above 101.5, your pain is not controlled, wound has increased drainage, wound has increased redness . "Provider Documentation" section prepared by Arnaldo Andres PA-C. . VTE Core Measure Inpt VTE Proph given/why not?: Other Anticoagulation (Xarelto), Deepika Zaman, SCD's [place] Drug Monitoring Program Search Results: patient reviewed within database, no issues identified
--- NOTE | 2017-07-13 07:47 | Anesthesiology Progress Note ---
Anesthesia Post Op Note Date & Time Jul 13, 2017 at 07:47 Vital Signs Pain Intensity: 1.0 Vital Signs Past 12 Hours Date Time Temp Pulse Resp B/P (MAP) Pulse Ox O2 Delivery O2 Flow Rate FiO2 07/13/17 07:19 36.8 89 18 107/69 (82) 96 Room Air 07/13/17 02:50 36.8 88 18 106/70 (82) 95 Room Air 07/13/17 00:40 Room Air 07/12/17 23:05 36.7 101 18 94/61 (72) 94 Room Air Notes Mental Status: alert / awake / arousable, participated in evaluation Pt Amnestic to Procedure: Yes Nausea / Vomiting: adequately controlled Pain: adequately controlled Airway Patency, RR, SpO2: stable & adequate BP & HR: stable & adequate Hydration State: stable & adequate Neuraxial Anesthesia: was administered, sensory block resolved Anesthetic Complications: no major complications apparent
[2017-07-13 08:36] LABS: HEMATOCRIT 36.8 % (42-52); HEMOGLOBIN 12.5 g/dL (14.0-18.0); MEAN CORPUSCULAR HEMOGLOBIN 29.9 pg (25-34); MEAN PLATELET VOLUME 10.9 fL (7.4-10.4); PLATELET COUNT 179 K/uL (130-400); RED CELL DISTRIBUTION WIDTH CV 13.4 % (11.5-14.5); RED CELL DISTRIBUTION WIDTH SD 42.8 fL (36.4-46.3)
[2017-07-13] MEDS: FERROUS GLUCONATE 324 MG TAB PO SCH ×2 (08:58→12:59)
[2017-07-13] MEDS: CARVEDILOL 3.125 MG TAB PO SCH (08:58)
[2017-07-13] MEDS: DOCUSATE SODIUM 100 MG CAP PO SCH (08:58)
[2017-07-13] MEDS ORDERED: PANTOprazole SOD 40 MG TAB PO SCH (09:00)
[2017-07-13] MEDS ORDERED: FLUTICASONE FUROATE SCH (09:00)
[2017-07-13] MEDS ORDERED: VILANTEROL SCH (09:00)
[2017-07-13] MEDS ORDERED: LOSARTAN POTASSIUM 25 MG TAB PO SCH (09:00)
[2017-07-13] MEDS ORDERED: MULTIVITAMIN TAB PO SCH (09:00)
[2017-07-13] MEDS: INSULIN ASPART 100 UNITS/ML 3 ML PEN SC SCH ×2 (09:02→13:02)
[2017-07-13] MEDS: OXYCODONE HCL IR 5 MG TAB (IMMEDIATE RELEASE) PO PRN ×2 (09:06→12:59)
[2017-07-13 11:05] VITALS: BP 109/74; PULSE 98; O2SAT 90
--- NOTE | 2017-07-13 13:08 | Progress Note ---
Subjective Date of Service: Jul 13, 2017. Subjective Pt evaluation today including: conversation w/ patient, conversation w/ family Pt is doing well post-op. He had his L knee done prior and feels this is similar recovery thus far. Tolerating PO without issue. No issues with his afib that he is aware of. Pt denies fever, SOB, chest pain, abd pain, n/v/c/d, LE pain or swelling. Review of Systems All Other Systems: Reviewed and Negative Objective Vital Signs Date Time Temp Pulse Resp B/P (MAP) Pulse Ox O2 Delivery O2 Flow Rate FiO2 07/13/17 11:05 98 90 07/13/17 07:52 Room Air 07/13/17 07:19 36.8 89 18 107/69 (82) 96 Room Air 07/13/17 02:50 36.8 88 18 106/70 (82) 95 Room Air 07/13/17 00:40 Room Air 07/12/17 23:05 36.7 101 18 94/61 (72) 94 Room Air 07/12/17 16:34 36.7 79 18 97/63 (74) 94 Nasal Cannula 2.0 07/12/17 15:57 72 07/12/17 15:30 Room Air 07/12/17 14:13 36.3 95 19 108/70 (83) 100 Nasal Cannula 2.0 Physical Exam General Appearance: WD/WN, no apparent distress Eyes: normal inspection, sclerae normal Respiratory/Chest: normal breath sounds, no respiratory distress Cardiovascular: regular rate, rhythm, no edema Abdomen: non tender, soft Extremities: non-tender, no pedal edema Neurologic/Psychiatric: alert, normal mood/affect, oriented x 3 Skin: normal color, warm/dry Laboratory Results Last 24 Hours Test 07/12/17 17:05 07/12/17 20:43 07/13/17 08:11 07/13/17 08:13 Bedside Glucose 233 mg/dl 219 mg/dl 184 mg/dl White Blood Count 17.70 K/uL Red Blood Count 4.18 M/uL Hemoglobin 12.5 g/dL Hematocrit 36.8 % Mean Corpuscular Volume 88.0 fL Mean Corpuscular Hemoglobin 29.9 pg Mean Corpuscular Hemoglobin Concent 34.0 g/dl RDW Standard Deviation 42.8 fL RDW Coefficient of Variation 13.4 % Platelet Count 179 K/uL Mean Platelet Volume 10.9 fL Test 07/13/17 12:07 Bedside Glucose 239 mg/dl Assessment and Plan 61yo male with h/o a. fib, HTN, MAGED on CPAP, T2DM, prior melanoma, COPD - s/p elective right TKR on 07/[address] Rainey. DM: Resume metformin at discharge. Perioperative steroids will likely cause glucoses will be high for about 24-36 hours. Novolog PRN Afib - rates are controlled at this time. Cont dig and coreg at home doses. Resume xarelto at earliest time possible deemed safe by orthopedic team for stroke prevention. HTN - BPs are low or low-normal post-op. Hold ARB. Cont coreg with appropriate hold parameters. Continue IVF. MAGED - continue CPAP - if home unit not available will order hospital unit. COPD - not in exacerbation at this time. Continue inhalers prn. DVT proph and diet as per ortho
[2017-07-13 13:19] VITALS: BP 109/74; PULSE 98; TEMP 36.8; O2SAT 90
[2017-07-13] MEDS ORDERED: CeleBREX 200 MG CAP PO SCH (21:00)
== END 2017-07-13 13:50 | disposition home health service (06) | DRG 470 ==
LOC: C.ACU 06:31 → C.3E 09:48 → ENRESERV 10:21
PROC: 0SRC0J9 Replacement of Right Knee Joint with Synthetic Substitute, Cemented, Open Approach (ICD-10-PCS; principal; 2017-07-12 08:15)
DX: M17.11 Unilateral primary osteoarthritis, right knee (principal); Z96.652 Presence of left artificial knee joint; I11.9 Hypertensive heart disease without heart failure; J44.9 Chronic obstructive pulmonary disease, unspecified; I48.91 Unspecified atrial fibrillation; G47.33 Obstructive sleep apnea (adult) (pediatric); E11.9 Type 2 diabetes mellitus without complications; E66.9 Obesity, unspecified; Z51.81 Encounter for therapeutic drug level monitoring; Z79.899 Other long term (current) drug therapy; Z79.01 Long term (current) use of anticoagulants; Z79.4 Long term (current) use of insulin; Z85.820 Personal history of malignant melanoma of skin; Z68.33 Body mass index [BMI] 33.0-33.9, adult; Z82.49 Family history of ischemic heart disease and other diseases of the circulatory system